=== PATIENT | female | born 1935 | race Caucasian/White ===

== ENCOUNTER 2020-01-18 13:00 | Inpatient (IN) | payer OTHER ==
--- NOTE | 2020-01-18 13:17 | PDOC ---
History of Present Illness - General Chief Complaint: Pain, Acute Stated Complaint: Pain Time Seen by Provider: 01/18/20 13:16 - History of Present Illness Initial Comments: 84 YOF h/o stage 1 ovarian cancer s/p open hysterectomy, HTN, and umbilical hernia presents with abdominal pain of 2 weeks duration. Pain is in a band like distribution of lower anterior abdomen including llq, rlq, and suprabupic region, 8/10 in intensity while ambulating and sitting upright, aching in quality, no radiation, not taking anything for it but lying in bed in improves pain. 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 Denies CP, SOB, Nausea, vomiting, diarrhea, fever or chills. Last bowel movement was this AM and she is still passing flatus. Constitutional: No Weight Change, No Fever, No Chills, No Night Sweats, No Fatigue, No Malaise ENT/Mouth: No Hearing Changes, No Ear Pain, No Nasal Congestion, No Sinus Pain, No Hoarseness, No sore throat, No Rhinorrhea, No Swallowing Difficulty Eyes: No Eye Pain, No Swelling, No Redness, No Foreign Body, No Discharge, No V ision Changes Cardiovascular: No Chest Pain, No SOB, No PND, No Dyspnea on Exertion, No Orthopnea, No Claudication, No Edema, No Palpitations Respiratory: No Cough, No Sputum, No Wheezing, No Smoke Exposure, No Dyspnea Gastrointestinal: No Nausea, No Vomiting, No Diarrhea, No Constipation, No He artburn, No Anorexia, No Dysphagia, No Hematochezia, No Melena, No Flatulence, No Jaundice Genitourinary: No Dysmenorrhea, No DUB, No Dyspareunia, No Dysuria, No Urinary Frequency, No Hematuria, No Urinary Incontinence, No Urgency, No Flank Pain, No Urinary Flow Changes, No Hesitancy Musculoskeletal: No Arthralgias, No Myalgias, No Joint Swelling, No Joint Stiffness, No Back Pain, No Neck Pain, No Injury History Skin: No Skin Lesions, No Pruritis, No Hair Changes, No Breast/Skin Changes, No Nipple Discharge Neuro: No Weakness, No Numbness, No Paresthesias, No Loss of Consciousness, No Syncope, No Dizziness, No Headache, No Coordination Changes, No Recent Falls Psych: No Anxiety/Panic, No Depression, No Insomnia, No Personality Changes, No Delusions, No Rumination, No SI/HI/AH/VH, No Social Issues, No Memory Changes, No Violence/Abuse Hx., No Eating Concerns Heme/Lymph: No Bruising, No Bleeding, No Transfusions History, No Lymphadenopathy Endocrine: No Polyuria, No Polydipsia, No Temperature Intolerance Past History - Medical History Allergies/Adverse Reactions: Allergies Allergy/AdvReac Type Severity Reaction Status Date / Time lactose AdvReac Verified 01/21/20 19:58 Home Medications: Ambulatory Orders Acetaminophen [Tylenol] 650 mg PO Q6H PRN 01/18/20 Amlodipine Besylate 2.5 mg PO DAILY 01/18/20 Calcium 250Mg/Vit-D 125 Units [Oscal 250 mg+D -] 1 combo PO DAILY 01/18/20 Cholecalciferol (Vitamin D3) [Vitamin D3 -] 1,000 unit PO DAILY 01/18/20 Levothyroxine Sodium [Levoxyl] 50 mcg PO DAILY 01/18/20 Metoprolol Succinate [Toprol Xl] 25 mg PO DAILY 01/18/20 Vit A/Vit C/Vit E/Zinc/Copper [Preservision Areds Softgel] 1 each PO BID 01/18/20 Vortioxetine Hydrobromide [Trintellix] 5 mg PO DAILY 01/18/20 COPD: No (sleep apnea) GI Disorders: Yes (hernia) Other medical history: unsteady gait - Psycho-Social/Smoking History Smoking History: Never smoked - Substance Abuse Hx (Audit-C & DAST Scrn) How often the patient has a drink containing alcohol: Never Score: In Men: 4 or > Positive; In Women: 3 or > Positive: 0 Screen Result (Pos requires Nsg. Audit-10AR): Negative In the last yr the pt used illegal drug/Rx for NonMed reason: No Score: Yes response is considered Positive: 0 Screen Result (Positive result requires Nsg. DAST-10): Negative *Physical Exam - Vital Signs Last Vital Signs Temp Pulse Resp BP Pulse Ox 98.0 F 79 18 134/74 100 01/18/20 13:12 01/18/20 13:12 01/18/20 13:12 01/18/20 13:12 01/18/20 13:12 - Physical Exam General Appearance: Yes: Appropriately Dressed, Apparent Distress HEENT: positive: NATALIIA, Normal ENT Inspection, Normal Voice, Symmetrical, TMs Normal, Pharynx Normal Neck: positive: Trachea midline, Normal Thyroid Respiratory/Chest: positive: Lungs Clear, Normal Breath Sounds, Respiratory Distress Cardiovascular: positive: Regular Rhythm, Regular Rate, S1, S2 Gastrointestinal/Abdominal: positive: Normal Bowel Sounds, Tender, Flat, Soft Musculoskeletal: positive: Normal Inspection, CVA Tenderness Extremity: positive: Normal Capillary Refill, Normal Inspection, Normal Range of Motion Integumentary: positive: Normal Color, Dry, Warm, Cyanotic Neurologic: positive: talent buyer II-XII NML intact, Fully Oriented, Alert, Normal Mood/Affect, Normal Response, Motor Strength 10/09 ED Treatment Course - LABORATORY CBC & Chemistry Diagram: 01/21/20 10:48 01/21/20 10:48 Medical Decision Making - Medical Decision Making 84 YOF h/o stage 1 ovarian cancer s/p open hysterectomy, HTN, and umbilical hernia presents with abdominal pain of 2 weeks duration. Pain is in a band like distribution of lower anterior abdomen including llq, rlq, and suprabupic region, 8/10 in intensity while ambulating and sitting upright, aching in quality, no radiation, not taking anything for it but lying in bed in improves pain. 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 Denies CP, SOB, Nausea, vomiting, diarrhea, fever or chills. Last bowel movement was this AM and she is still passing flatus. On arrival vitals were wnl. Physical exam revealing of TTP in lower abdomen bilaterally as well as in suprapubic region. ddx: diverticulitis, UTI, constipation, gastritis, pancreatitis, mesenteric ischemia plan: CT abdomen and pelvis w/ contrast, EKG, CXR, labs, UA tylenol for pain control. reassess: EKG and CXR, labs, UA wnl. CT revealed dilatation of the small bowel consistent with ileus, spoke with Dr. Landeros who recommended patient be made NPO admitted for management of ileus. Dispo: admit to medicine. 01/22/20 03:37 01/22/20 03:39 Discharge - Discharge Information Problems reviewed: Yes Clinical Impression/Diagnosis: Ileus - Follow up/Referral - Patient Discharge Instructions - Post Discharge Activity
[2020-01-18] MEDS ORDERED: ACETAMINOPHEN 1000 MG/100 ML VIAL (NON FORMULARY) IVPB ONE (14:30)
[2020-01-18] MEDS ORDERED: ACETAMINOPHEN INJECTION 100 ML IVPB ONE (14:33)
[2020-01-18 14:48] LABS: PH,URINE 7.5 (5.0-8.0); URINE APPEARANCE CLEAR; URINE BILIRUBIN NEGATIVE (NEGATIVE); URINE COLOR YELLOW; URINE GLUCOSE (UA) NEGATIVE (NEGATIVE); URINE KETONE NEGATIVE (NEGATIVE); URINE LEUK ESTERASE NEGATIVE (NEGATIVE); URINE NITRITE NEGATIVE (NEGATIVE); URINE PROTEIN NEGATIVE (NEGATIVE); URINE UROBILINOGEN 0.2 mg/dL (0.2-1.0)
[2020-01-18 15:15] LABS: BASO % 1.2 % (0-2.0); EOS % 1.5 % (0-4.5); HEMATOCRIT 32.8 % (32.4-45.2); HEMOGLOBIN 10.8 GM/dL (10.7-15.3); LYMPH % 29.1 % (8-40); MCH 30.9 pg (25.7-33.7); MCHC 32.9 g/dl (32.0-36.0); MEAN CELL VOLUME 93.7 fl (80-96); MEAN PLT VOLUME 8.1 fl (7.5-11.1); MONO % 9.7 % (3.8-10.2); NEUT % 58.5 % (42.8-82.8); PLATELET COUNT 388 K/MM3 (134-434); RBC 3.51 M/mm3 (3.60-5.2); RDW 13.6 % (11.6-15.6); WHITE BLOOD COUNT 9.4 K/mm3 (4.0-10.0)
[2020-01-18 15:41] LABS: ALBUMIN 3.6 g/dl (3.4-5.0); BILIRUBIN,TOTAL 0.2 mg/dL (0.2-1); BLOOD UREA NITROGEN 19.7 mg/dL (7-18); CREATININE 1.2 mg/dL (0.55-1.3); POTASSIUM 4.5 mmol/L (3.5-5.1); TOT PROT 7.2 g/dl (6.4-8.2)
--- NOTE | 2020-01-18 17:27 | PDOC ---
Documentation entered by Italia Gavin SCRIBE, acting as scribe for Paola Kaplan MD. Paola Kaplan MD: This documentation has been prepared by the scribe, Italia Gavin SCRIBE, under my direction and personally reviewed by me in its entirety. I confirm that the documentation accurately reflects all work, treatment, procedures, and medical decision making performed by me. Attending Attestation - Resident Resident Name: KhrisTaqueria jewell - ED Attending Attestation I have performed the following: I have examined & evaluated the patient, The case was reviewed & discussed with the resident, I agree w/resident's findings & plan, Exceptions are as noted - HPI HPI: 01/18/20 15:35 The patient is an 84-year-old female with a past medical history significant for sleep apnea and hernia who presents to the emergency department with few days of crampy, lower abdominal pain that worsened in the past week associated with decreased PO tolerance. Denies any changes in bowel habits. Denies urinary complaints. Denies fever or chills. - Physicial Exam PE: 01/18/20 14:50 General: well appearing HEENT: NCAT, MMM Abdomen: soft, +periumbilical reducible hernia, diffuse lower abd tenderness but maximal tenderness LLQ, no rebound, no guarding - Medical Decision Making 01/18/20 14:51 84 yo F with crampy lower abd pain, no change in bowel habits and no urinary complaints, found to have lower abdominal tenderness on exam, possible diverticulitis vs. UTI vs. pyelo vs. malignancy vs. constipation (although patient reports normal BMs) vs. msk pain as patient reports pain is worse with movement. Plan: -labs -cxr -urine -CT a/p -pain control as needed -reassess This clinical encounter is taking place during a federal and state health care emergency attributable to the novel [place] Virus pandemic. The [employer] of the Department of Health and Human Services has declared, pursuant to the Public Health Service Act 319F-3 (42 U.S.C. 247d-6d), that a covered persons activities related to medical countermeasures against COVID-19 will be immune from liability under Federal and State law. CT with possible ileus. Surgery consulted, awaiting recs. Patient signed out to incoming night team. Discharge - Discharge Information Problems reviewed: Yes Clinical Impression/Diagnosis: Ileus - Follow up/Referral - Patient Discharge Instructions - Post Discharge Activity
--- NOTE | 2020-01-18 21:32 | PN ---
Teaching Attending Note Name of Resident: Aubrey Llanos ATTENDING PHYSICIAN STATEMENT I saw and evaluated the patient. I reviewed the resident's note and discussed the case with the resident. I agree with the resident's findings and plan as documented. 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 Pain is in a band like distribution of lower anterior abdomen including LLQ, RLQ and suprabupic region. It is 8/10 in intensity while ambulating and sitting upright, aching in quality with no radiation. She is not taking anything for it but lying in bed in improves pain. 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 Last bowel movement was this AM and she is still passing flatus. Patient denies chest pain, shortness of breath, headache, palpitations, dizziness, fever, chills, nausea, vomiting, diarrhea, constipation, dysuria, frequency, urgency, melena, hematochezia or hematuria. Denies alcohol, tobacco or illicit drug use. No sick contacts or recent travels. Family history is unremarkable. OBJECTIVE: Alert Vital Signs Period Temp Pulse Resp BP Sys/Miguel Pulse Ox Last 24 Hr 98.0 F-98.8 F 64-79 14-18 134-167/63-79 96-100 HEENT: No Jaundice, eye redness or discharge, PERRLA, EOMI. Normocephalic, atraumatic. External ears are normal and hearing is grossly intact. No nasal discharge. Neck: Supple, nontender. No palpable adenopathy or thyromegaly. No JVD Chest: Good effort. Clear to auscultation and percussion. Heart: Regular. No S3, rub or murmur Abdomen: Not distended, soft, periumbilical reducible hernia, diffuse lower abdominal tenderness most marked in LLQ, no HSM. No rebound or guarding. Normal bowel sounds. Ext: Peripheral pulses intact. No leg edema. Skin: Warm and dry. No petechiae, rash or ecchymosis. Neuro: Alert. Oriented x3. CN 2-12 grossly intact. Sensation grossly intact in all four extremities and DTR are symmetric. Psych: Appropriate mood and affect. Good insight. Home Medications Medication Instructions Recorded Acetaminophen [Tylenol] 650 mg PO Q6H PRN 01/18/20 Amlodipine Besylate 2.5 mg PO DAILY 01/18/20 Calcium 250Mg/Vit-D 125 Units 1 combo PO DAILY 01/18/20 [Oscal 250 mg+D -] Cholecalciferol (Vitamin D3) 1,000 unit PO DAILY 01/18/20 [Vitamin D3 -] Levothyroxine Sodium [Levoxyl] 50 mcg PO DAILY 01/18/20 Metoprolol Succinate [Toprol Xl] 25 mg PO DAILY 01/18/20 Vit A/Vit C/Vit E/Zinc/Copper 1 each PO BID 01/18/20 [Preservision Areds Softgel] Vortioxetine Hydrobromide 5 mg PO DAILY 01/18/20 [Trintellix] Abnormal Lab Results 01/18/20 01/18/20 01/18/20 14:04 14:41 14:41 RBC 3.51 L BUN 19.7 H Ur Specific [place] 1.006 L Current Medications Generic Name Dose Route Start Last Admin Trade Name Freq PRN Reason Stop Dose Admin Acetaminophen 1,000 mg 01/19/20 05:26 Ofirmev Injection - IVPB 01/20/20 05:26 Q8H PRN PAIN LEVEL 4 - 6 Amlodipine Besylate 2.5 mg 01/19/20 10:00 Norvasc - PO DAILY [facility] Lactated Ringer's 1,000 mls @ 75 mls/hr 01/19/20 05:30 Lactated Ringers Solution IV ASDIR [facility] Levothyroxine Sodium 50 mcg 01/19/20 07:00 Synthroid - PO DAILY@0700 [facility] ASSESSMENT AND PLAN: 1. Small bowel ileus - CT scan of abdomen/pelvis with IV and oral contrast shows moderate size umblical hernia without evidence of incaceration; small bowel ileus and diverticulosis coli without evidence of diverticulitis. Will get PT/INR, keep her NPO, give IV LR, use Tylenol for pain control and consult Surgery. No acute abnormality on CXR. EKG shows NSR at 65/minute and QTc [address]-T wave changes. Initial troponin is negative. Viral testing for COVID-19 ordered and patient placed on airborne, droplet and contact isolation. Will continue comprehensive care for all of patients comorbid conditions including Synthroid for hypothyroidism. 2. Hypertension Will restart suitable outpatient antihypertensive drugs when clinically appropriate. Subsequently, will revise regimen to ensure [id number] excellent BP control. Patient counseled on the injurious effects of uncontrolled hypertension. Nonpharmacologic measures to control hypertension like weight loss, salt restriction and exercise stressed. Importance of adherence to treatment regimen and attainment of normotension emphasized. 3. DVT prophylaxis - SCD. 4. Advance directives - Full code
[2020-01-18] MEDS ORDERED: LACTATED RINGERS SOLUTION 1000 ML INFUS.BAG IV ONE (21:45)
--- NOTE | 2020-01-19 05:23 | HP ---
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 Pain is in a band like and extensive, involving the lower anterior abdomen including the LLQ, RLQ and suprabupic region. It is aggravated by ambulation and sitting upright with severity of 8/10. SH ehas never taken any pain relieve as it is relieved when lying suppine in bed. It is aching in nature with no radiation. She also mentions that she experienced a syncopal event of unknown etiology recently and had an implantable hydrogen cell tender placed about 3days ago. . Patient denies dizziness, fever, chills, nausea, vomiting, diarrhea, constipation, melena, hematochezia or hematuria, dysuria, frequency, urgency, ch est pain, shortness of breath, headache, palpitations,Family history is unremarkable. ER course was notable for: (1)LR 1000ml (2)Tylenol 1000ml (3)Urine culture Recent Travel:None PAST SURGICAL HISTORY:Hysterectomy Social History: Smoking: Alcohol: Drugs: Allergies No Known Allergies Allergy (Verified 01/18/20 13:15) HOME MEDICATIONS: Home Medications Medication Instructions Recorded Acetaminophen [Tylenol] 650 mg PO Q6H PRN 01/18/20 Amlodipine Besylate 2.5 mg PO DAILY 01/18/20 Calcium 250Mg/Vit-D 125 Units 1 combo PO DAILY 01/18/20 [Oscal 250 mg+D -] Cholecalciferol (Vitamin D3) 1,000 unit PO DAILY 01/18/20 [Vitamin D3 -] Levothyroxine Sodium [Levoxyl] 50 mcg PO DAILY 01/18/20 Metoprolol Succinate [Toprol Xl] 25 mg PO DAILY 01/18/20 Vit A/Vit C/Vit E/Zinc/Copper 1 each PO BID 01/18/20 [Preservision Areds Softgel] Vortioxetine Hydrobromide 5 mg PO DAILY 01/18/20 [Trintellix] REVIEW OF SYSTEMS Negative except as above Vital Signs - 24 hr 01/18/20 01/18/20 01/18/20 13:12 16:47 20:19 Temperature 98.0 F 98.8 F 98.7 F Pulse Rate 79 Pulse Rate [ 67 64 Right Radial] Respiratory 18 16 Rate Blood Pressure 134/74 Blood Pressure 167/74 155/79 [Left Arm] O2 Sat by Pulse 100 96 96 Oximetry (%) 01/18/20 01/19/20 01/19/20 22:00 02:03 03:19 Temperature 98.3 F Pulse Rate 59 L Pulse Rate [ 64 64 Right Radial] Respiratory 14 14 20 Rate Blood Pressure 126/76 Blood Pressure 166/63 178/88 H [Left Arm] O2 Sat by Pulse 97 97 100 Oximetry (%) PHYSICAL EXAMINATION GENERAL: Awake, alert, and fully oriented, in no acute distress. HEAD: Normal with no signs of trauma. EYES: sclera anicteric, conjunctiva clear. No lid lag. NECK: Normal range of motion, supple without lymphadenopathy, JVD, or masses. There is excessive fresh skin hanging over the anterior neck. 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 No wheezes, and no crackles. No obvious sign of respirtory distress HEART: Regular rate and rhythm, normal S1 and S2 without murmur, rub or gallop. ABDOMEN: Soft, left umblical hernia seen. There is severe tenderness over the LLQ, RLQ. No hepatomegaly or splenomegaly. MUSCULOSKELETAL: Normal range of motion at all joints. No bony deformities or tenderness. No CVA tenderness. UPPER EXTREMITIES: 2+ pulses, warm, well-perfused. No cyanosis. No clubbing. No peripheral edema. LOWER EXTREMITIES: 2+ pulses, warm, well-perfused. No calf tenderness. No periph eral edema. NEUROLOGICAL: Cranial nerves II-XII intact. Normal speech. PSYCHIATRIC: Cooperative. Good eye contact. Appropriate mood and affect. SKIN: Warm, dry, normal turgor, no rashes or lesions noted, normal capillary refill. Laboratory Results - last 24 hr 01/18/20 01/18/20 01/18/20 14:04 14:41 14:41 WBC 9.4 RBC 3.51 L Hgb 10.8 Hct 32.8 MCV 93.7 MCH 30.9 MCHC 32.9 RDW 13.6 Plt Count 388 MPV 8.1 Absolute Neuts (auto) 5.5 Neutrophils % 58.5 Lymphocytes % 29.1 Monocytes % 9.7 Eosinophils % 1.5 Basophils % 1.2 Nucleated RBC % 0 Sodium 137 Potassium 4.5 Chloride 102 Carbon Dioxide 27 Anion Gap 8 BUN 19.7 H Creatinine 1.2 Est GFR (CKD-EPI)AfAm 47.72 Est GFR (CKD-EPI)NonAf 41.18 Random Glucose 94 Calcium 10.0 Total Bilirubin 0.2 AST 21 ALT 23 Alkaline Phosphatase 117 Total Protein 7.2 Albumin 3.6 Lipase Urine Color Yellow Urine Appearance Clear Urine pH 7.5 Ur Specific [place] 1.006 L Urine Protein Negative Urine Glucose (UA) Negative Urine Ketones Negative Urine Blood Negative Urine Nitrite Negative Urine Bilirubin Negative Urine Urobilinogen 0.2 Ur Leukocyte Esterase Negative 01/18/20 14:41 WBC RBC Hgb Hct MCV MCH MCHC RDW Plt Count MPV Absolute Neuts (auto) Neutrophils % Lymphocytes % Monocytes % Eosinophils % Basophils % Nucleated RBC % Sodium Potassium Chloride Carbon Dioxide Anion Gap BUN Creatinine Est GFR (CKD-EPI)AfAm Est GFR (CKD-EPI)NonAf Random Glucose Calcium Total Bilirubin AST ALT Alkaline Phosphatase Total Protein Albumin Lipase 221 Urine Color Urine Appearance Urine pH Ur Specific [place] Urine Protein Urine Glucose (UA) Urine Ketones Urine Blood Urine Nitrite Urine Bilirubin Urine Urobilinogen Ur Leukocyte Esterase ASSESSMENT/PLAN: Patient is an 84 year old woman with a PMH of Stage 1 Ovarian cancer, hysterectomy, Syncope, Implantable hydrogen cell tender, HTN, Hypothyroidism, sleep apnea and Umbilical hernia now c/o of abdominal pain of 2 weeks duration. #SMALL BOWEL ILEUS: lower abdominal pain CT scan of abdomen/pelvis with IV and oral contrast revealed moderate size uncomplicated umblical, small bowel ileus and diverticulosis coli without evidence of diverticulitis. PT/INR, Tylenol for pain control Consult Surgery. EKG shows NSR at 65/minute and QTc [address]-T wave changes with - ve Initial troponin. No acute abnormality on CXR. COVID-[address] patient on airborne, droplet and contact isolation. Continuen Synthroid for hypothyroidism and treatment for other comorbid conditions #HTN: Educate patient on importance of medication adherence and it's effect on optimal BP management as well as non pharmacologic approach to BP: weight loss, reduced salt intake and exercise Revise and resume appropriate outpatient antihypertensive drugs when clinically appropriate to ensure optimal BP control at all time #FEN: IV LR Monitor and replete electrolytes prn NPO #DISPOSITION: DVT prophylaxis - SCD. F/u pending labs Advance directives - Full code Family Medical History Family History: Unremarkable Visit type - Medication Review Med list reviewed for High Risk Meds patients 65 and older: Yes - Emergency Visit Emergency Visit: Yes ED Registration Date: 01/18/20 Care time: The patient presented to the Emergency Department on the above date and was hospitalized for further evaluation of their emergent condition. - New Patient This patient is new to me today: Yes Date on this admission: 01/19/20 - Critical Care Critical Care patient: No ATTENDING PHYSICIAN STATEMENT I saw and evaluated the patient. I reviewed the resident's note and discussed the case with the resident. I agree with the resident's findings and plan as documented. SUBJECTIVE: OBJECTIVE: ASSESSMENT AND PLAN:
[2020-01-19] MEDS ORDERED: ACETAMINOPHEN 1000 MG/100 ML VIAL (NON FORMULARY) IVPB PRN (05:26)
[2020-01-19] MEDS: LACTATED RINGERS SOLUTION 1,000 ML IV SCH (06:07)
[2020-01-19] MEDS: LEVOTHYROXINE NA 50 MCG TABLET (FP) PO SCH (08:07)
--- NOTE | 2020-01-19 10:30 | CONSULT ---
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 Pt reports she has had a known hernia since her surgery 3 years ago. States she was instructed to observe it and not pursue surgery unless necessary. States she began having abdominal pain 2 weeks ago. Pain is reported as 10/10 located across the lower abdomen. Pain is worse with ambulation, is not affected by eating or BMS. Has been eating, tough reports anorexia. Last bm was yesterday and was normal. Denies flatus but states that is baseline for her. Denies cp/sob, n/v/d, constipation, melena, hematochezia or hematuria, dysuria, frequency, urgency. PMHx: as above PSHx: as above Home Medications Medication Instructions Recorded Acetaminophen [Tylenol] 650 mg PO Q6H PRN 01/18/20 Amlodipine Besylate 2.5 mg PO DAILY 01/18/20 Calcium 250Mg/Vit-D 125 Units 1 combo PO DAILY 01/18/20 [Oscal 250 mg+D -] Cholecalciferol (Vitamin D3) 1,000 unit PO DAILY 01/18/20 [Vitamin D3 -] Levothyroxine Sodium [Levoxyl] 50 mcg PO DAILY 01/18/20 Metoprolol Succinate [Toprol Xl] 25 mg PO DAILY 01/18/20 Vit A/Vit C/Vit E/Zinc/Copper 1 each PO BID 01/18/20 [Preservision Areds Softgel] Vortioxetine Hydrobromide 5 mg PO DAILY 01/18/20 [Trintellix] Allergies Allergy/AdvReac Type Severity Reaction Status Date / Time No Known Allergies Allergy Verified 01/18/20 13:15 REVIEW OF SYSTEMS: CONSTITUTIONAL: Absent: fever, chills CARDIOVASCULAR: Absent: chest pain RESPIRATORY: Absent: cough, shortness of breath GASTROINTESTINAL: (+) abdominal pain, (-)abdominal distension, (-)nausea, (-) vomiting, (-) diarrhea, (-)constipation PHYSICAL EXAM: GENERAL: Awake, alert, in no acute distress. HEAD: Normal with no signs of trauma. Chest: steristrips in place mid chest LUNGS: No accessory muscle use on RA ABDOMEN: Soft, ++ttp at umbilicus, + palpable hernia, reducible, abdomen not distended, normoactive bowel sounds Vital Signs Temperature 98.3 F 01/19/20 03:19 Pulse Rate 59 L 01/19/20 03:19 Respiratory Rate 20 01/19/20 03:19 Blood Pressure 126/76 01/19/20 03:19 O2 Sat by Pulse Oximetry (%) 100 01/19/20 03:19 Lab Results WBC 9.4 K/mm3 (4.0-10.0) 01/18/20 14:41 RBC 3.51 M/mm3 (3.60-5.2) L 01/18/20 14:41 Hgb 10.8 GM/dL (10.7-15.3) 01/18/20 14:41 Hct 32.8 % (32.4-45.2) 01/18/20 14:41 MCV 93.7 fl (80-96) 01/18/20 14:41 MCHC 32.9 g/dl (32.0-36.0) 01/18/20 14:41 RDW 13.6 % (11.6-15.6) 01/18/20 14:41 Plt Count 388 K/MM3 (134-434) 01/18/20 14:41 Sodium 137 mmol/L (136-145) 01/18/20 14:41 Potassium 4.5 mmol/L (3.5-5.1) 01/18/20 14:41 Chloride 102 mmol/L (98-107) 01/18/20 14:41 Carbon Dioxide 27 mmol/L (21-32) 01/18/20 14:41 Anion Gap 8 MMOL/L (8-16) 01/18/20 14:41 BUN 19.7 mg/dL (7-18) H 01/18/20 14:41 Creatinine 1.2 mg/dL (0.55-1.3) 01/18/20 14:41 Random Glucose 94 mg/dL (74-106) 01/18/20 14:41 Calcium 10.0 mg/dL (8.5-10.1) 01/18/20 14:41 CT scan (01/18/20): Moderate size umbilical hernia with herniating bowel loops likely small bowel and without gross evidence of incarceration. However there is as short segment of mild small bowel dilatation is seen in the left lower abdomen that does not appear to be communicating with the herniating bowel loops. Likely on the basis of ileus. 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 CT scan with larger umbilical hernia. Surgery consulted for further evaluation. Pt with reducible, tender umbilical hernia Pt s/p implantable loop recorder 3 days ago at [facility] -Plan for open umbilical hernia repair on Wednesday, 01/21 -Will need cardiac clearance prior, had recent echo at [facility] -clear liquids ordered -npo after midnight Wednesday, 01/20 SEEN and examined with attending Dr Landeros
[2020-01-19] MEDS: amLODIPine BESYLATE 5 MG TABLET (FP) PO SCH (10:39)
[2020-01-19 11:13] LABS: HEMOGLOBIN 11.3 GM/dL (10.7-15.3); MCH 30.6 pg (25.7-33.7); MCHC 32.4 g/dl (32.0-36.0); MEAN CELL VOLUME 94.5 fl (80-96); PLATELET COUNT 383 K/MM3 (134-434); RDW 13.5 % (11.6-15.6); WHITE BLOOD COUNT 7.6 K/mm3 (4.0-10.0)
[2020-01-19 11:19] LABS: INR 1.05 (0.83-1.09); PROTHROMBIN TIME (PATIENT) 12.4 SEC (9.7-13.0)
[2020-01-19 11:21] LABS: ACTIVATED PTT 30.6 SECONDS (25.2-36.5)
[2020-01-19 11:52] LABS: ALBUMIN 3.4 g/dl (3.4-5.0); BILIRUBIN,TOTAL 0.5 mg/dL (0.2-1); CALCIUM 9.6 mg/dL (8.5-10.1); MAGNESIUM 2.3 mg/dL (1.8-2.4); PHOSPHOROUS 3.6 mg/dL (2.5-4.9); POTASSIUM 4.2 mmol/L (3.5-5.1)
--- NOTE | 2020-01-19 14:19 | CON.CARD ---
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 Pain is in a band like distribution of lower anterior abdomen including LLQ, RLQ and suprabupic region. It is 8/10 in intensity while ambulating and sitting upright, aching in quality with no radiation. She is not taking anything for it but lying in bed in improves pain. She also mentions a recent syncopal event of unknown etiology for which she has an implantable associate consulting engineer. Last bowel movement was this AM and she is still passing flatus. Patient denies chest pain, sh ortness of breath, headache, palpitations, dizziness, fever, chills, nausea, vomiting, diarrhea, constipation, dysuria, frequency, urgency, melena, hematochezia or hematuria. Denies alcohol, tobacco or illicit drug use. No sick contacts or recent travels. Family history is unremarkable. - Smoking History Smoking history: Never smoked Home Medications - Allergies Allergies/Adverse Reactions: Allergies Allergy/AdvReac Type Severity Reaction Status Date / Time No Known Allergies Allergy Verified 01/18/20 13:15 - Home Medications Home Medications: Ambulatory Orders Acetaminophen [Tylenol] 650 mg PO Q6H PRN 01/18/20 Amlodipine Besylate 2.5 mg PO DAILY 01/18/20 Calcium 250Mg/Vit-D 125 Units [Oscal 250 mg+D -] 1 combo PO DAILY 01/18/20 Cholecalciferol (Vitamin D3) [Vitamin D3 -] 1,000 unit PO DAILY 01/18/20 Levothyroxine Sodium [Levoxyl] 50 mcg PO DAILY 01/18/20 Metoprolol Succinate [Toprol Xl] 25 mg PO DAILY 01/18/20 Vit A/Vit C/Vit E/Zinc/Copper [Preservision Areds Softgel] 1 each PO BID 01/18/20 Vortioxetine Hydrobromide [Trintellix] 5 mg PO DAILY 01/18/20 Review of Systems - Review of Systems Constitutional: reports: No Symptoms Eyes: reports: No Symptoms HENT: reports: No Symptoms Neck: reports: No Symptoms Cardiovascular: reports: No Symptoms Gastrointestinal: reports: No Symptoms Genitourinary: reports: No Symptoms Breasts: reports: No Symptoms Reported Musculoskeletal: reports: No Symptoms Integumentary: reports: No Symptoms Neurological: reports: No Symptoms Endocrine: reports: No Symptoms Hematology/Lymphatic: reports: No Symptoms Psychiatric: reports: No Symptoms Vital Signs: Vital Signs Temperature 98.3 F 01/19/20 10:00 Pulse Rate 70 01/19/20 10:00 Respiratory Rate 18 01/19/20 10:00 Blood Pressure 134/71 01/19/20 10:00 O2 Sat by Pulse Oximetry (%) 97 01/19/20 10:00 Constitutional: Yes: Well Nourished, No Distress, Calm Eyes: Yes: WNL, Conjunctiva Clear, EOM Intact HENT: Yes: WNL, Atraumatic, Normocephalic Neck: Yes: WNL, Supple, Trachea Midline Respiratory: Yes: WNL, Regular, CTA Bilaterally Gastrointestinal: Yes: WNL, Normal Bowel Sounds Renal/: Yes: WNL Cardiovascular: Yes: WNL, Regular Rate and Rhythm Musculoskeletal: Yes: WNL Extremities: Yes: WNL Integumentary: Yes: WNL Neurological: Yes: WNL, Alert, Oriented ...Motor Strength: WNL Psychiatric: Yes: WNL, Alert, Oriented - Other Data Labs, Other Data: CBC, BMP 01/19/20 10:46 01/19/20 10:46 INR, PTT INR 1.05 (0.83-1.09) 01/19/20 10:46 Imaging - Results Chest X-ray: Image Reviewed (no i/e) EKG: Image Reviewed (sr wnl) Other: Report Reviewed (ECHO nl LV size and systolic FX) Problem List - Problems (1) Ileus Code(s): K56.7 - ILEUS, UNSPECIFIED Assessment/Plan 84 year old woman with a PMH of Stage 1 Ovarian cancer (s/p open hysterectomy), Hypothyroidism, Syncope one week ago, Implanted loop recorder associate consulting engineer a week ago, HTN, Sleep apnea and Umbilical hernia presents with abdominal pain of [address] scan (01/18/20): Moderate size umbilical hernia with herniating bowel loops likely small bowel and without gross evidence of incarceration. However there is as short segment of mild small bowel dilatation is seen in the left lower abdomen that does not appear to be communicating with the herniating bowel loops. Likely on the basis of ileus. Patient is being evaluated for clearance for open umbilical hernia repair on Wednesday, 01/21 Patient has normal EKG and ECHO, no h/o ASHD, Angina, CT or CHF Patient is low risk for cardiac complications during hernia repair and its cleared for surgery. Cont DVT plx
--- NOTE | 2020-01-19 15:44 | EKG ---
Test Reason : Blood Pressure : / mmHG Vent. Rate : 065 BPM Atrial Rate : 065 BPM P-R Int : 164 ms QRS Dur : 078 ms QT Int : 416 ms P-R-T Axes : 046 046 059 degrees QTc Int : 432 ms NORMAL SINUS RHYTHM CANNOT RULE OUT ANTERIOR INFARCT , AGE UNDETERMINED ABNORMAL ECG NO PREVIOUS ECGS AVAILABLE Confirmed by MEGAN VAZQUEZ MD ([id number]) on 01/19/2020 3:44:15 PM Referred By: Confirmed By:MEGAN VAZQUEZ MD
--- NOTE | 2020-01-19 15:46 | EKG ---
Test Reason : Blood Pressure : / mmHG Vent. Rate : 068 BPM Atrial Rate : 068 BPM P-R Int : 182 ms QRS Dur : 086 ms QT Int : 410 ms P-R-T Axes : 064 064 072 degrees QTc Int : 435 ms NORMAL SINUS RHYTHM NORMAL ECG WHEN COMPARED WITH ECG OF 18-JAN-2020 16:29, NO SIGNIFICANT CHANGE WAS FOUND Confirmed by MEGAN VAZQUEZ MD ([id number]) on 01/19/2020 3:46:04 PM Referred By: Confirmed By:MEGAN VAZQUEZ MD
--- NOTE | 2020-01-19 16:37 | ECHO ---
Name: ONOFRE HOWARD SR Exam:Adult Echocardiogram Study Date: 01/19/2020 03:02 PM Age: 84 yrs Reason For Study: Evaluate EF, pre-op Height: 62 in Weight: 122 lb BSA: 1.5 m2 MMode/2D Measurements & Calculations IVSd: 0.84 cm Ao root diam: 2.9 cm LVIDd: 3.4 cm LA dimension: 2.5 cm LVIDs: 2.3 cm ACS: 1.7 cm LVPWd: 0.86 cm EDV(Teich): 48.8 ml LVOT diam: 1.9 cm ESV(Teich): 18.4 ml LAV (MOD-bp): 49.0 ml TAPSE: 2.0 cm RV S Barrera: 13.1 cm/sec Doppler Measurements & Calculations MV E max barrera: 67.1 cm/sec Ao V2 max: 105.9 cm/sec MV A max barrera: 89.8 cm/sec Ao max P.5 mmHg MV E/A: 0.75 Ao V2 mean: 75.6 cm/sec MV dec time: 0.25 sec Ao mean P.5 mmHg Ao V2 VTI: 22.4 cm CELSO(I,D): 1.9 cm2 AI P1/2t: 639.3 msec CELSO(V,D): 2.0 cm2 AI max barrera: 340.7 cm/sec LV V1 max P.3 mmHg AI max P.4 mmHg LV V1 mean P.1 mmHg AI dec slope: 156.1 cm/sec2 LV V1 max: 76.4 cm/sec LV V1 mean: 49.6 cm/sec LV V1 VTI: 15.0 cm SV(LVOT): 42.4 ml TR max barrera: 213.6 cm/sec TR max P.4 mmHg PA V2 max: 66.5 cm/sec PI end-d barrera: 116.7 cm/sec PA max P.8 mmHg PA acc slope: 518.7 cm/sec2 PA acc time: 0.11 sec Med Peak E' Barrera: 5.6 cm/sec PA pr(Accel): 31.5 mmHg Med E/e': 12.1 Lat Peak E' Barrera: 8.9 cm/sec Lat E/e': 7.6 Pulm Sys Barrera: 37.0 cm/sec Pulm Miguel Barrera: 29.8 cm/sec Pulm S/D: 1.2 Procedure A complete two-dimensional transthoracic echocardiogram was performed (2D, M-mode, Doppler and color flow Doppler). Left Ventricle The left ventricular size, thickness and function are normal. The left ventricular ejection fraction is normal. Ejection Fraction = 60-65%. The left ventricular wall motion is normal. Right Ventricle The right ventricle is normal in size and function. Atria Normal left and right atrial size and function. Mitral Valve There is no mitral regurgitation noted. Tricuspid Valve There is mild tricuspid regurgitation. Right ventricular systolic pressure is normal. Aortic Valve No hemodynamically significant valvular aortic stenosis. Trace aortic regurgitation. Pulmonic Valve Trace pulmonic valvular regurgitation. Great Vessels The aortic root is normal size. Pericardium/Pleura There is no pericardial effusion. Interpretation Summary The left ventricular size, thickness and function are normal The right ventricle is normal in size and function. There is mild tricuspid regurgitation. Trace aortic regurgitation. Trace pulmonic valvular regurgitation. MD Alfonzo Sebastian 01/19/2020 04:37 PM
--- NOTE | 2020-01-19 17:13 | PN ---
Progress Note, Physician Chief Complaint: 24HR Events admitted for small bowel ileus in the setting of ventral hernia. pt evaluated by surgery for repair, but will need cardiac clearance. History of Present Illness: 84 year old woman with a PMH of Stage 1 Ovarian cancer, hysterectomy, Syncope, Implantable ekg monitor, HTN, Hypothyroidism, sleep apnea and Umbilical hernia now c/o of abdominal pain of [address] scan of abdomen/pelvis with IV and oral contrast revealed moderate size uncomplicated umblical, small bowel ileus and diverticulosis coli without evidence of diverticulitis. - Current Medication List Current Medications: Active Medications Acetaminophen (Ofirmev Injection -) 1,000 mg IVPB Q8H PRN PRN Reason: PAIN LEVEL 4 - 6 Stop: 01/20/20 05:26 Amlodipine Besylate (Norvasc -) 2.5 mg PO DAILY [facility] Last Admin: 01/19/20 10:39 Dose: 2.5 mg Documented by: Lactated Ringer's (Lactated Ringers Solution) 1,000 mls @ 75 mls/hr IV ASDIR SC H Last Admin: 01/19/20 06:07 Dose: 75 mls/hr Documented by: Levothyroxine Sodium (Synthroid -) 50 mcg PO DAILY@0700 [facility] Last Admin: 01/19/20 08:07 Dose: Not Given Documented by: - Objective Vital Signs: Vital Signs Temperature 98.2 F 01/19/20 14:05 Pulse Rate 72 01/19/20 14:05 Respiratory Rate 16 01/19/20 14:05 Blood Pressure 148/72 01/19/20 14:05 O2 Sat by Pulse Oximetry (%) 97 01/19/20 10:00 Constitutional: Yes: No Distress, Calm, Thin Eyes: Yes: Conjunctiva Clear HENT: Yes: Atraumatic, Normocephalic Neck: Yes: Thyromegaly Cardiovascular: Yes: Regular Rate and Rhythm Respiratory: Yes: CTA Bilaterally Gastrointestinal: Yes: Soft, Abdomen, Obese, Hernia, Hypoactive Bowel Sounds ...Rectal Exam: Yes: Deferred Musculoskeletal: Yes: WNL Extremities: Yes: WNL Edema: No Peripheral Pulses WNL: Yes Peripheral Pulses: Left Radial: 2+, Right Radial: 2+ Integumentary: Yes: WNL Neurological: Yes: Alert, Oriented ...Motor Strength: WNL Psychiatric: Yes: Alert, Oriented Labs: CBC, BMP 01/19/20 10:46 01/19/20 10:46 INR, PTT INR 1.05 (0.83-1.09) 01/19/20 10:46 - ....Imaging EKG: Report Reviewed (EKG 01/19/20 NSR 68bpm) Other: Report Reviewed (ECHO 01/19/20 Impression: Normal LV size, function and thickness. RV is normal size and function Mild tricuspid regurg trace aortic regurg Trace pulm valvular regurg Signed by Dr. Alfonzo Sebastian) Problem List - Problems (1) Hypothyroidism Assessment/Plan: synthroid 50mcg daily Code(s): E03.9 - HYPOTHYROIDISM, UNSPECIFIED (2) Recurrent syncope Assessment/Plan: pt has loop recorder recently placed by outpt cardiology Medical release signed in order to obtain records from [facility]. Code(s): R55 - SYNCOPE AND COLLAPSE (3) Umbilical hernia Assessment/Plan: pt being followed by surgery cardiology consulted for clearance Code(s): K42.9 - UMBILICAL HERNIA WITHOUT OBSTRUCTION OR GANGRENE (4) Ileus Assessment/Plan: clear liquid diet APAP PRN pain gentle IV hydration. Code(s): K56.7 - ILEUS, UNSPECIFIED (5) HTN (hypertension) Assessment/Plan: norvasc 2.5mg daily, can titrate up if BP becomes uncontrolled Toprol XL currently on hold Code(s): I10 - ESSENTIAL (PRIMARY) HYPERTENSION (6) Prophylactic measure Assessment/Plan: SCDs fall precautions SC heparin Code(s): Z29.9 - ENCOUNTER FOR PROPHYLACTIC MEASURES, UNSPECIFIED (7) Depression Assessment/Plan: hold trintellix supportive management Code(s): F32.9 - MAJOR DEPRESSIVE DISORDER, SINGLE EPISODE, UNSPECIFIED Impression/Plan Impression/Plan: Dispo: requires inpt care Full code Visit type - Emergency Visit Emergency Visit: Yes ED Registration Date: 01/18/20 Care time: The patient presented to the Emergency Department on the above date and was hospitalized for further evaluation of their emergent condition. - New Patient This patient is new to me today: Yes Date on this admission: 01/19/20 - Critical Care Critical Care patient: No - Discharge Referral Referred to [facility] Med P.C[facility] No - Medication Review Med list reviewed for High Risk Meds patients 65 and older: Yes
[2020-01-19] MEDS: HEPARIN NA (PORCINE) 5,000 UNITS/ML 1ML VIAL SQ SCH (21:53)
[2020-01-20] MEDS: LACTATED RINGERS SOLUTION 1,000 ML IV SCH ×2 (06:30→10:53)
[2020-01-20] MEDS: LEVOTHYROXINE NA 50 MCG TABLET (FP) PO SCH (06:31)
--- NOTE | 2020-01-20 09:57 | PN ---
Progress Note (short form) - Note Progress Note: Attending Surgeon Seen in f/u; appears a and o x 3 h/e forgetful at times; tolerated clear liquid diet No flatus and/or BM VSS AF abdo-soft; hernia easily reducible; non tender; o/w negative. IMP: incisional hernia/ileus improving PLAN: Advance to full liquids and plan for OR 01/22/2020 for repair of incisional hernia., Omari Landeros MD FACS
[2020-01-20] MEDS: amLODIPine BESYLATE 5 MG TABLET (FP) PO SCH (10:53)
[2020-01-20] MEDS: HEPARIN NA (PORCINE) 5,000 UNITS/ML 1ML VIAL SQ SCH ×2 (10:57→21:56)
--- NOTE | 2020-01-20 17:24 | PN ---
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 scan of abdomen/pelvis with IV and oral contrast revealed moderate size uncomplicated umblical, small bowel ileus and diverticulosis coli without evidence of diverticulitis. - Current Medication List Current Medications: Active Medications Amlodipine Besylate (Norvasc -) 2.5 mg PO DAILY [facility] Last Admin: 01/20/20 10:53 Dose: 2.5 mg Documented by: Heparin Sodium (Porcine) (Heparin -) 5,000 unit SQ BID [facility] Last Admin: 01/20/20 10:57 Dose: 5,000 unit Documented by: Lactated Ringer's (Lactated Ringers Solution) 1,000 mls @ 75 mls/hr IV ASDIR [facility] Last Admin: 01/20/20 10:53 Dose: 75 mls/hr Documented by: Levothyroxine Sodium (Synthroid -) 50 mcg PO DAILY@0700 [facility] Last Admin: 01/20/20 06:31 Dose: 50 mcg Documented by: - Objective Vital Signs: Vital Signs Temperature 98.9 F 01/20/20 10:00 Pulse Rate 90 01/20/20 10:00 Respiratory Rate 20 01/20/20 10:00 Blood Pressure 160/70 01/20/20 10:00 O2 Sat by Pulse Oximetry (%) 96 01/20/20 09:00 Constitutional: Yes: Well Nourished, No Distress Eyes: Yes: WNL, Conjunctiva Clear, Ptosis HENT: Yes: WNL, Atraumatic, Normocephalic Neck: Yes: WNL, Supple Cardiovascular: Yes: WNL, Regular Rate and Rhythm Respiratory: Yes: WNL, Regular, CTA Bilaterally Gastrointestinal: Yes: WNL, Normal Bowel Sounds, Soft Extremities: Yes: WNL Edema: No Integumentary: Yes: WNL Wound/Incision: Yes: Clean/Dry, Well Approximated Neurological: Yes: WNL, Alert, Oriented ...Motor Strength: WNL Psychiatric: Yes: WNL, Alert, Oriented Labs: CBC, BMP 01/19/20 10:46 01/19/20 10:46 INR, PTT INR 1.05 (0.83-1.09) 01/19/20 10:46 Impression/Plan Impression/Plan: 84 year old woman with a PMH notable for Stage 1 Ovarian cancer, hysterectomy, Syncope, Implantable monitoring engineer, HTN, Hypothyroidism, sleep apnea and Umbilical hernia now c/o of abdominal pain of [address] scan of abdomen/pelvis with IV and oral contrast revealed moderate size uncomplicated umblical, small bowel ileus and diverticulosis coli without evidence of diverticulitis. ....Imaging EKG: Report Reviewed (EKG 01/19/20 NSR 68bpm) Other: Report Reviewed (ECHO 01/19/20 Impression: Normal LV size, function and thickness. RV is normal size and function Mild tricuspid regurg trace aortic regurg Trace pulm valvular regurg Signed by Dr. Alfonzo Sebastian) Problem List - Problems (1) Ileus Assessment/Plan: Diet advanced to full liquid diet, tolerating it well APAP PRN pain gentle IV hydration as needed Code(s): K56.7 - ILEUS, UNSPECIFIED (2) Recurrent syncope Assessment/Plan: Patient has loop recorder recently placed by outpatient cardiology Medical release signed in order to obtain records from [facility]. Code(s): R55 - SYNCOPE AND COLLAPSE (3) Umbilical hernia Assessment/Plan: Patient being followed by surgery cardiology consulted for clearance As per surgery incisional hernia/ileus improving PLAN: Advance to full liquids and plan for OR 01/22/2020 for repair of incisional hernia., Code(s): K42.9 - UMBILICAL HERNIA WITHOUT OBSTRUCTION OR GANGRENE (4) Hypothyroidism Assessment/Plan: Continue with synthroid 50mcg daily Code(s): E03.9 - HYPOTHYROIDISM, UNSPECIFIED (5) HTN (hypertension) Assessment/Plan: Norvasc 2.5mg daily, can titrate up if Blood pressure becomes uncontrolled Toprol XL currently on hold Code(s): I10 - ESSENTIAL (PRIMARY) HYPERTENSION (6) Prophylactic measure Assessment/Plan: SCDs Fall precautions SC heparin Code(s): Z29.9 - ENCOUNTER FOR PROPHYLACTIC MEASURES, UNSPECIFIED (7) Depression Assessment/Plan: hold trintellix supportive management Code(s): F32.9 - MAJOR DEPRESSIVE DISORDER, SINGLE EPISODE, UNSPECIFIED Dispo: Requires inpatient care Full code Visit type - Emergency Visit Emergency Visit: Yes ED Registration Date: 01/18/20 Care time: The patient presented to the Emergency Department on the above date and was hospitalized for further evaluation of their emergent condition. - New Patient This patient is new to me today: Yes Date on this admission: 01/20/20 - Critical Care Critical Care patient: No - Discharge Referral Referred to [facility] Med P.C.: No - Medication Review Med list reviewed for High Risk Meds patients 65 and older: No
[2020-01-21] MEDS: LACTATED RINGERS SOLUTION 1,000 ML IV SCH (05:59)
[2020-01-21] MEDS: LEVOTHYROXINE NA 50 MCG TABLET (FP) PO SCH (06:00)
[2020-01-21] MEDS ORDERED: amLODIPine BESYLATE 2.5 MG TABLET (FP) PO SCH (07:43)
--- NOTE | 2020-01-21 09:27 | PN ---
Physical Exam: SUBJECTIVE: Patient seen and examined 01/21/20: Feels better today, denies any abdominal pain, madonna po, no nausea or vomiting Denies any cp or sob OBJECTIVE: Vital Signs Period Temp Pulse Resp BP Sys/Miguel Pulse Ox Last 24 Hr 97.7 F-98.9 F 75-90 20-20 136-160/70-83 94-95 GENERAL: The patient is awake, alert, and fully oriented, in no acute distress. HEAD: Normal with no signs of trauma. EYES: extraocular movements intact, sclera anicteric, conjunctiva clear. No ptosis. ENT: Ears normal, nares patent, oropharynx clear without exudates, moist mucous membranes. NECK: Trachea midline, full range of motion, supple. LUNGS: Breath sounds equal, clear to auscultation bilaterally, no wheezes, no accessory muscle use. Crackles at the bases HEART: Regular rate and rhythm, S1, S2 without murmur, rub or gallop. ABDOMEN: Soft, nontender, nondistended, normoactive bowel sounds, no guarding, no rebound, no hepatosplenomegaly, no masses. pos umbilical hernia, reducible EXTREMITIES: 2+ pulses, warm, well-perfused, no edema. NEUROLOGICAL: Cranial nerves II through XII grossly intact. Normal speech, gait not observed. PSYCH: Normal mood, normal affect. SKIN: Warm, dry, normal turgor, no rashes or lesions noted Active Medications Generic Name Dose Route Start Last Admin Trade Name Freq PRN Reason Stop Dose Admin Amlodipine Besylate 2.5 mg 01/21/20 10:00 Norvasc - PO DAILY [facility] Heparin Sodium (Porcine) 5,000 unit 01/19/20 22:00 01/20/20 21:56 Heparin - SQ 5,000 unit BID ALIDA Administration Lactated Ringer's 1,000 mls @ 75 mls/hr 01/19/20 05:30 01/21/20 05:59 Lactated Ringers Solution IV Not Given ASDIR [facility] Levothyroxine Sodium 50 mcg 01/19/20 07:00 01/21/20 06:00 Synthroid - PO 50 mcg DAILY@0700 ALIDA Administration ASSESSMENT/PLAN: 84 year old woman with a PMH notable for Stage 1 Ovarian cancer, hysterectomy, Syncope, 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 scan of abdomen/pelvis with IV and oral contrast revealed moderate size uncomplicated umblical, small bowel ileus and diverticulosis coli without evidence of diverticulitis. Problem List - Problems (1) Ileus Assessment/Plan: Diet advanced to full liquid diet, tolerating it well; Resolved APAP PRN pain Code(s): K56.7 - ILEUS, UNSPECIFIED (2) Recurrent syncope Assessment/Plan: Patient has loop recorder recently placed by outpatient cardiology Medical [facility] signed [facility] Code(s): R55 - SYNCOPE AND COLLAPSE (3) Umbilical hernia Assessment/Plan: Patient being followed by surgery cardiology consulted for clearance As per surgery incisional hernia/ileus improving PLAN: Advance to full liquids and plan for OR 01/22/2020 for repair of incisional hernia., H/H, coags, electrolytes stable type and screen ordered for OR tomorrow Keep NPO post mn tonight No medical contraindications to proposed surgery Recommend incentive jennifer post op Code(s): K42.9 - UMBILICAL HERNIA WITHOUT OBSTRUCTION OR GANGRENE (4) Hypothyroidism Assessment/Plan: Continue with synthroid 50mcg daily Code(s): E03.9 - HYPOTHYROIDISM, UNSPECIFIED (5) HTN (hypertension) Assessment/Plan: Norvasc 2.5mg daily, can titrate up if Blood pressure becomes uncontrolled Toprol XL currently on hold --? unclear why held, will restart bb graham in perioperative setting, hr stable BP well controlled Code(s): I10 - ESSENTIAL (PRIMARY) HYPERTENSION (6) Prophylactic measure Assessment/Plan: SCDs Fall precautions SC heparin Code(s): Z29.9 - ENCOUNTER FOR PROPHYLACTIC MEASURES, UNSPECIFIED (7) Depression Assessment/Plan: hold trintellix supportive management Code(s): F32.9 - MAJOR DEPRESSIVE DISORDER, SINGLE EPISODE, UNSPECIFIED Visit type - Emergency Visit Emergency Visit: Yes ED Registration Date: 01/18/20 Care time: The patient presented to the Emergency Department on the above date and was hospitalized for further evaluation of their emergent condition. - New Patient This patient is new to me today: Yes Date on this admission: 01/21/20 - Critical Care Critical Care patient: No - Discharge Referral Referred to [facility] Med P.C.: No - Medication Review Med list reviewed for High Risk Meds patients 65 and older: Yes
[2020-01-21] MEDS: HEPARIN NA (PORCINE) 5,000 UNITS/ML 1ML VIAL SQ SCH ×2 (09:29→22:49)
[2020-01-21] MEDS: amLODIPine BESYLATE 2.5 MG TABLET (FP) PO SCH (09:29)
[2020-01-21 10:58] LABS: BASO % 1.7 % (0-2.0); EOS % 0.9 % (0-4.5); HEMATOCRIT 31.3 % (32.4-45.2); HEMOGLOBIN 10.4 GM/dL (10.7-15.3); LYMPH % 25.8 % (8-40); MCHC 33.3 g/dl (32.0-36.0); MEAN CELL VOLUME 93.2 fl (80-96); NEUT % 59.6 % (42.8-82.8); PLATELET COUNT 329 K/MM3 (134-434); RBC 3.36 M/mm3 (3.60-5.2); RDW 13.8 % (11.6-15.6); WHITE BLOOD COUNT 7.8 K/mm3 (4.0-10.0)
[2020-01-21 11:44] LABS: BLOOD UREA NITROGEN 9.4 mg/dL (7-18)
[2020-01-22] MEDS: LEVOTHYROXINE NA 50 MCG TABLET (FP) PO SCH ×2 (06:05→06:06)
[2020-01-22] MEDS: LACTATED RINGERS SOLUTION 1,000 ML IV SCH ×2 (07:56→17:10)
[2020-01-22] MEDS ORDERED: metoPROLOL SUCCINATE 25 MG TAB.SR.24H (FP) PO SCH (10:00)
[2020-01-22] MEDS: HEPARIN NA (PORCINE) 5,000 UNITS/ML 1ML VIAL SQ SCH ×2 (10:55→21:02)
[2020-01-22] MEDS: amLODIPine BESYLATE 2.5 MG TABLET (FP) PO SCH (10:58)
--- NOTE | 2020-01-22 11:48 | PN ---
Progress Note (short form) - Note Progress Note: Attending Surgeon For repair incisional hernia w/possible mesh today; plan d/w and agreed to by the patient; she has signed informed consent; I have discussed this w/her HCP as well; I believe the hernia to have been the reason she was admitted for her abdominal pain; the goal here is to repair the hernia so that she does not present the next time w/it being incarcerated and/or strangulated. Omari Landeros MD FACS
[2020-01-22] MEDS ORDERED: DEXAMETHASONE SOD PHOSPHATE/PF 10 MG/ML SDV ONE (12:06)
[2020-01-22] MEDS ORDERED: PROPOFOL 20 ML ONE ×2 (12:06)
[2020-01-22] MEDS ORDERED: MIDAZOLAM HCL 2 MG/2 ML SINGLE DOSE VIAL ONE ×2 (12:06→12:14)
[2020-01-22] MEDS ORDERED: ceFAZolin SODIUM 1 GM VIAL IVPB ONE (12:37)
[2020-01-22] MEDS ORDERED: ONDANSETRON 4 MG/2 ML VIAL IVPUSH PRN ×2 (13:30→16:38)
[2020-01-22] MEDS ORDERED: ACETAMINOPHEN 1000 MG/100 ML VIAL (NON FORMULARY) IVPB PRN (13:30)
--- NOTE | 2020-01-22 13:48 | OP ---
Operative Note - Note: Operative Date: 01/22/20 Pre-Operative Diagnosis: incisional hernia Operation: repair incisional hernia w/Nathan IP Findings: defect at the umbilicus ~ 4.0 cm. in greatest dimension. Implants: Sepramesh IP Surgeon: Omari Landeros Scanning Supervisor: Octavio Jimenes Anesthesiologist/SEM MANAGER: Mili Jackman Anesthesia: General (with block) Specimens Removed: none Estimated Blood Loss (mls): 10
[2020-01-22] MEDS ORDERED: ACETAMINOPHEN INJECTION 100 ML IVPB ONE (14:12)
[2020-01-22] MEDS: ACETAMINOPHEN 1000 MG/100 ML VIAL (NON FORMULARY) IVPB PRN (14:15)
--- NOTE | 2020-01-22 14:59 | SURG ---
Surgery Electric Locomotive Crane Operator Note Electric Locomotive Crane Operator: Octavio Jimenes PA-C Date of Service: 01/22/20 Diagnosis: incisional hernia Procedure: repair incisional hernia w/ senait HERMAN I was present for the entirety of the operative procedure. For further detail, please refer to operative report. Visit type - Case Type Case Type: ED Admission - Emergency Emergency Visit: Yes ED Registration Date: 01/18/20 Care time: The patient presented to the Emergency Department on the above date and was hospitalized for further evaluation of their emergent condition. - New patient This patient is new to me today: Yes Date on this admission: 01/22/20
[2020-01-22] MEDS ORDERED: oxyCODONE HCL 5 MG TABLET PO PRN (16:38)
--- NOTE | 2020-01-22 16:54 | PN ---
Progress Note, Physician History of Present Illness: 84 year old woman with a PMH of Stage 1 Ovarian cancer (s/p open hysterectomy), Hypothyroidism, Syncope, Implantable chief arson division, HTN, Sleep apnea and Umbilical hernia presents with abdominal pain of 2 weeks duration. Pain is in a band like distribution of lower anterior abdomen including LLQ, RLQ and suprabupic region. It is 8/10 in intensity while ambulating and sitting upright, aching in quality with no radiation. She is not taking anything for it but lying in bed in improves pain. She also mentions a recent syncopal event of unknown etiology for which she has an implantable chief arson division. Last bowel movement was this AM and she is still passing flatus. Patient denies chest pain, shortness of breath, headache, palpitations, dizziness, fever, chills, nausea, vomiting, diarrhea, constipation, dysuria, frequency, urgency, melena, hematochezia or hematuria. Denies alcohol, tobacco or illicit drug use. No sick contacts or recent travels. Family history is unremarkable. - Current Medication List Current Medications: Active Medications Acetaminophen (Ofirmev Injection -) 1,000 mg IVPB Q6H PRN PRN Reason: PAIN Stop: 01/23/20 13:30 Amlodipine Besylate (Norvasc -) 2.5 mg PO DAILY [facility] Fentanyl (Sublimaze Injection -) 25 mcg IVPUSH Q5M PRN PRN Reason: PAIN-PACU ORDER X 4 DOSES ONLY Heparin Sodium (Porcine) (Heparin -) 5,000 unit SQ BID [facility] Lactated Ringer's (Lactated Ringers Solution) 1,000 mls @ 75 mls/hr IV ASDIR [facility] Levothyroxine Sodium (Synthroid -) 50 mcg PO DAILY@0700 [facility] Metoprolol Succinate (Toprol Xl -) 25 mg PO DAILY [facility] Ondansetron HCl (Zofran Injection) 4 mg IVPUSH Q6H PRN PRN Reason: NAUSEA AND/OR VOMITING Oxycodone HCl (Roxicodone -) 5 mg PO Q6H PRN PRN Reason: PAIN LEVEL 6-10 - Objective Vital Signs: Vital Signs Temperature 100 F H 01/22/20 15:45 Pulse Rate 17 L 01/22/20 15:45 Respiratory Rate 16 01/22/20 15:30 Blood Pressure 140/506 H 01/22/20 15:45 O2 Sat by Pulse Oximetry (%) 100 01/22/20 15:30 Eyes: Yes: WNL, Conjunctiva Clear, EOM Intact HENT: Yes: WNL, Atraumatic, Normocephalic Neck: Yes: WNL, Supple, Trachea Midline Cardiovascular: Yes: WNL, Regular Rate and Rhythm Respiratory: Yes: WNL, Regular, CTA Bilaterally Genitourinary: Yes: WNL Musculoskeletal: Yes: WNL Extremities: Yes: WNL Edema: No Integumentary: Yes: WNL Neurological: Yes: WNL, Alert, Oriented ...Motor Strength: WNL Psychiatric: Yes: WNL Labs: CBC, BMP 01/21/20 10:48 01/21/20 10:48 INR, PTT INR 1.05 (0.83-1.09) 01/19/20 10:46 Problem List - Problems (1) Ileus Code(s): K56.7 - ILEUS, UNSPECIFIED Assessment/Plan 84 year old woman with a PMH of Stage 1 Ovarian cancer (s/p open hysterectomy), Hypothyroidism, Syncope one week ago, Implanted loop recorder chief arson division a week ago, HTN, Sleep apnea and Umbilical hernia presents with abdominal pain of [address] scan (01/18/20): Moderate size umbilical hernia with herniating bowel loops likely small bowel and without gross evidence of incarceration. However there is as short segment of mild small bowel dilatation is seen in the left lower abdomen that does not appear to be communicating with the herniating bowel loops. Likely on the basis of ileus. Patient is being evaluated for clearance for open umbilical hernia repair on Wednesday, 01/21 Patient has normal EKG and ECHO, no h/o ASHD, Angina, IN or CHF Patient is low risk for cardiac complications during hernia repair and its cleared for surgery. Cont DVT plx
--- NOTE | 2020-01-22 19:07 | PN ---
Progress Note, Physician Chief Complaint: 24HR events Pt scheduled for OR today - for open umbilical hernia repair with Dr. 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 scan of abdomen/pelvis with IV and oral contrast revealed moderate size uncomplicated umblical, small bowel ileus and diverticulosis coli without ev idence of diverticulitis. - Current Medication List Current Medications: Active Medications Acetaminophen (Ofirmev Injection -) 1,000 mg IVPB Q6H PRN PRN Reason: PAIN Stop: 01/23/20 13:30 Last Admin: 01/22/20 14:15 Dose: 1,000 mg Documented by: Amlodipine Besylate (Norvasc -) 2.5 mg PO DAILY [facility] Heparin Sodium (Porcine) (Heparin -) 5,000 unit SQ BID [facility] Lactated Ringer's (Lactated Ringers Solution) 1,000 mls @ 75 mls/hr IV ASDIR ALIDA Last Admin: 01/22/20 17:10 Dose: 0 mls Documented by: Levothyroxine Sodium (Synthroid -) 50 mcg PO DAILY@0700 [facility] Metoprolol Succinate (Toprol Xl -) 25 mg PO DAILY [facility] Ondansetron HCl (Zofran Injection) 4 mg IVPUSH Q6H PRN PRN Reason: NAUSEA AND/OR VOMITING Oxycodone HCl (Roxicodone -) 5 mg PO Q6H PRN PRN Reason: PAIN LEVEL 6-10 - Objective Vital Signs: Vital Signs Temperature 97.6 F 01/22/20 18:09 Pulse Rate 76 01/22/20 18:09 Respiratory Rate 18 01/22/20 18:09 Blood Pressure 179/82 H 01/22/20 18:09 O2 Sat by Pulse Oximetry (%) 96 01/22/20 18:09 Constitutional: Yes: No Distress, Calm Eyes: Yes: Conjunctiva Clear HENT: Yes: Atraumatic Neck: Yes: Supple, Thyromegaly Respiratory: Yes: Regular, CTA Bilaterally Gastrointestinal: Yes: Abdomen, Obese, Hypoactive Bowel Sounds, Other (LLQ tenderness) Musculoskeletal: Yes: WNL Extremities: Yes: WNL Edema: No Peripheral Pulses WNL: Yes Peripheral Pulses: Left Radial: 2+, Right Radial: 2+ Integumentary: Yes: WNL Neurological: Yes: Alert, Oriented ...Motor Strength: WNL Psychiatric: Yes: Alert, Oriented Labs: CBC, BMP 01/21/20 10:48 01/21/20 10:48 INR, PTT INR 1.05 (0.83-1.09) 01/19/20 10:46 Problem List - Problems (1) Hypothyroidism Assessment/Plan: synthroid 50mcg daily Code(s): E03.9 - HYPOTHYROIDISM, UNSPECIFIED (2) Recurrent syncope Assessment/Plan: pt has loop recorder recently placed by outpt cardiology Code(s): R55 - SYNCOPE AND COLLAPSE (3) Umbilical hernia Assessment/Plan: pt being followed by surgery - now s/p open repair with Dr. Landeros Operative Date: 01/22/20 Pre-Operative Diagnosis: incisional hernia Operation: repair incisional hernia w/Sepramesh IP Findings: defect at the umbilicus ~ 4.0 cm. in greatest dimension. Implants: Sepramesh IP Surgeon: Omari Landeros Impact Retail Service Merchandiser: Octavio Jimenes Anesthesiologist/WATER RESOURCE PROJECT MANAGER: Mili Jackman Anesthesia: General (with block) Specimens Removed: none Estimated Blood Loss (mls): 10 Code(s): K42.9 - UMBILICAL HERNIA WITHOUT OBSTRUCTION OR GANGRENE (4) HTN (hypertension) Assessment/Plan: norvasc 2.5mg daily, can titrate up if BP becomes uncontrolled Toprol XL currently on hold Code(s): I10 - ESSENTIAL (PRIMARY) HYPERTENSION (5) Prophylactic measure Assessment/Plan: SCDs fall precautions SC heparin BID Code(s): Z29.9 - ENCOUNTER FOR PROPHYLACTIC MEASURES, UNSPECIFIED (6) Depression Assessment/Plan: hold trintellix supportive management Code(s): F32.9 - MAJOR DEPRESSIVE DISORDER, SINGLE EPISODE, UNSPECIFIED Visit type - Emergency Visit Emergency Visit: Yes ED Registration Date: 01/18/20 Care time: The patient presented to the Emergency Department on the above date and was hospitalized for further evaluation of their emergent condition. - New Patient This patient is new to me today: No - Critical Care Critical Care patient: No - Discharge Referral Referred to [facility] Med P.C.: No - Medication Review Med list reviewed for High Risk Meds patients 65 and older: Yes
[2020-01-23] MEDS: ACETAMINOPHEN 1000 MG/100 ML VIAL (NON FORMULARY) IVPB PRN (06:24)
[2020-01-23] MEDS: LEVOTHYROXINE NA 50 MCG TABLET (FP) PO SCH (06:24)
[2020-01-23] MEDS ORDERED: amLODIPine BESYLATE 2.5 MG TABLET (FP) PO SCH ×2 (10:00→16:22)
[2020-01-23] MEDS: metoPROLOL SUCCINATE 25 MG TAB.SR.24H (FP) PO SCH (10:25)
[2020-01-23] MEDS: HEPARIN NA (PORCINE) 5,000 UNITS/ML 1ML VIAL SQ SCH ×2 (10:26→21:25)
--- NOTE | 2020-01-23 11:04 | PN ---
Progress Note (short form) - Note Progress Note: Surgery POD #1 repair incisional hernia w/Nathan IP Patient seen and examined at bedside c/o RLQ and LLQ band like pain mostly controlled with oral medications. She has been OOB voiding and tolerating some sips of clears. She denies any CP, N/V, fever, chills or SOB. Vital Signs Temp 97.8 F 01/23/20 06:05 Pulse 57 L 01/23/20 06:05 Resp 20 01/23/20 06:05 BP 133/80 01/23/20 06:05 Pulse Ox 95 01/23/20 06:05 Intake & Output 01/22/20 01/22/20 01/23/20 11:59 23:59 11:59 Intake Total 375 1600 450 Output Total 10 Balance 375 1590 450 Intake: IV 375 1600 450 Lactated Ringers Solution 375 1,000 ml @ 75 mls/hr IV ASDIR ALIDA Rx#:[id number] Lactated Ringers Solution 300 450 1,000 ml @ 75 mls/hr IV ASDIR ALIDA Rx#:[id number] IVPB 0 0 TPN/PPN 0 Output: Estimated Blood Loss 10 Other: Voiding Method Toilet Toilet Toilet # Unmeasured Voids Void 2 2 1 Bowel Movement Yes No No CBC, BMP 01/21/20 10:48 01/21/20 10:48 PE: A&Ox3, NAD Unlabored resp on RA ABD: soft, ND with diffuse TTP in b/l lower quadrants. incision c/d/i with steri strips in place and surrounding tissue intact with no tracking erythema, or evidence of collection or active d/c. B/L LE compartments soft, supple and non-tender with +DP pulses. Problem List - Problems (1) Incisional hernia Assessment/Plan: POD #1 incisional hernia repair doing well 1) pain medication reviewed and changed 2) continue clear diet today 3) Encourage IS-reviewed with patient this morning 4) OOB with assist and up to chair for meals Evaluation and plan discussed with Dr Landeros Code(s): K43.2 - INCISIONAL HERNIA WITHOUT OBSTRUCTION OR GANGRENE
--- NOTE | 2020-01-23 16:16 | PN ---
Physical Exam: SUBJECTIVE: Patient seen and examined. verbalized abdominal pain at surgical site relived with IV tylenol. 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 scan of abdomen/pelvis with IV and oral contrast revealed moderate size uncomplicated umblical, small bowel ileus and diverticulosis coli without evidence of diverticulitis. Patient is s/p open umbilical hernia repair on 01/22/2020. Vital Signs Period Temp Pulse Resp BP Sys/Miguel Pulse Ox Last 24 Hr 97.6 F-98.6 F 57-76 12-20 133-179/48-99 95-100 GENERAL: The patient is awake, alert, and fully oriented, in no acute distress. episodes of forgetfullness. HEAD: Normal with no signs of trauma. EYES: PERRL, extraocular movements intact, sclera anicteric, conjunctiva clear. No ptosis. ENT: Ears normal, nares patent, oropharynx clear without exudates NECK: Trachea midline, full range of motion, supple. LUNGS: Breath sounds equal, clear to auscultation bilaterally, no wheezes HEART: Regular rate and rhythm ABDOMEN: soft, non distended, surgical dress c/d/i EXTREMITIES: no edema. NEUROLOGICAL: Normal speech, gait not observed. PSYCH: Normal mood, normal affect. SKIN: Warm, dry, normal turgor, no rashes or lesions noted Active Medications Generic Name Dose Route Start Last Admin Trade Name Grahamq PRN Reason Stop Dose Admin Amlodipine Besylate 2.5 mg 01/23/20 10:00 01/23/20 10:25 Norvasc - PO 2.5 mg DAILY [facility] Administration Heparin Sodium (Porcine) 5,000 unit 01/22/20 22:00 01/23/20 10:26 Heparin - SQ 5,000 unit BID ALIDA Administration Lactated Ringer's 1,000 mls @ 75 mls/hr 01/22/20 16:38 01/22/20 17:10 Lactated Ringers Solution IV 0 mls ASDIR ALIDA Administration Levothyroxine Sodium 50 mcg 01/23/20 07:00 01/23/20 06:24 Synthroid - PO 50 mcg DAILY@0700 [facility] Administration Metoprolol Succinate 25 mg 01/23/20 10:00 01/23/20 10:25 Toprol Xl - PO 25 mg DAILY [facility] Administration Ondansetron HCl 4 mg 01/22/20 16:38 Zofran Injection IVPUSH Q6H PRN NAUSEA AND/OR VOMITING Oxycodone HCl 5 mg 01/23/20 07:53 Roxicodone - PO Q4H PRN PAIN LEVEL 6-10 ASSESSMENT/PLAN: Problem List - Problems (1) Status post hernia repair Assessment/Plan: on 01/22/2020, underwent open repair with Dr. Landeros dressing c/d/i advance diet per surgery incentive spirometer pain management Code(s): Z98.890 - OTHER SPECIFIED POSTPROCEDURAL STATES; Z87.19 - PERSONAL HISTORY OF OTHER DISEASES OF THE DIGESTIVE SYSTEM (2) HTN (hypertension) Assessment/Plan: slightly elevated on toprol and amlodopine increased amlodopine today Code(s): I10 - ESSENTIAL (PRIMARY) HYPERTENSION (3) Depression Assessment/Plan: hold trintellix supportive management Code(s): F32.9 - MAJOR DEPRESSIVE DISORDER, SINGLE EPISODE, UNSPECIFIED (4) DVT prophylaxis Assessment/Plan: SCDs Code(s): Z29.9 - ENCOUNTER FOR PROPHYLACTIC MEASURES, UNSPECIFIED (5) Prophylactic measure Assessment/Plan: SCDs fall precautions SC heparin BID Code(s): Z29.9 - ENCOUNTER FOR PROPHYLACTIC MEASURES, UNSPECIFIED Visit type - Emergency Visit Emergency Visit: Yes ED Registration Date: 01/18/20 Care time: The patient presented to the Emergency Department on the above date and was hospitalized for further evaluation of their emergent condition. - New Patient This patient is new to me today: Yes Date on this admission: 01/23/20 - Critical Care Critical Care patient: No - Discharge Referral Referred to [facility] Med P.C.: No - Medication Review Med list reviewed for High Risk Meds patients 65 and older: Yes
[2020-01-23 16:46] LABS: BASO % 0.4 % (0-2.0); HEMATOCRIT 31.1 % (32.4-45.2); HEMOGLOBIN 10.2 GM/dL (10.7-15.3); MEAN PLT VOLUME 9.7 fl (7.5-11.1); MONO % 11.4 % (3.8-10.2); NEUT % 72.2 % (42.8-82.8); PLATELET COUNT 295 K/MM3 (134-434); RDW 13.6 % (11.6-15.6); WHITE BLOOD COUNT 12.7 K/mm3 (4.0-10.0)
[2020-01-23 17:09] LABS: BILIRUBIN,TOTAL 0.3 mg/dL (0.2-1); BLOOD UREA NITROGEN 10.7 mg/dL (7-18); CALCIUM 8.9 mg/dL (8.5-10.1); CREATININE 1.1 mg/dL (0.55-1.3); MAGNESIUM 1.9 mg/dL (1.8-2.4); POTASSIUM 3.9 mmol/L (3.5-5.1); TOT PROT 6.4 g/dl (6.4-8.2)
--- NOTE | 2020-01-23 17:13 | PN ---
Progress Note, Physician Chief Complaint: Pt alert; no chest pain or dyspnea; no dizziness. 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 She also mentions a recent syncopal event of unknown etiology for which she has an implantable bus driver/monitor. Patient denies chest pain, shortness of breath, headache, palpitations, dizziness, fever, chills, nausea, vomiting, diarrhea, constipation, dysuria, frequency, urgency, melena, hematochezia or hematuria. Denies alcohol, tobacco or illicit drug use. No sick contacts or recent travels. Family history is unremarkable. - Current Medication List Current Medications: Active Medications Amlodipine Besylate (Norvasc -) 5 mg PO DAILY [facility] Heparin Sodium (Porcine) (Heparin -) 5,000 unit SQ BID [facility] Last Admin: 01/23/20 10:26 Dose: 5,000 unit Documented by: Lactated Ringer's (Lactated Ringers Solution) 1,000 mls @ 75 mls/hr IV ASDIR [facility] Last Admin: 01/22/20 17:10 Dose: 0 mls Documented by: Levothyroxine Sodium (Synthroid -) 50 mcg PO DAILY@0700 [facility] Last Admin: 01/23/20 06:24 Dose: 50 mcg Documented by: Metoprolol Succinate (Toprol Xl -) 25 mg PO DAILY [facility] Last Admin: 01/23/20 10:25 Dose: 25 mg Documented by: Ondansetron HCl (Zofran Injection) 4 mg IVPUSH Q6H PRN PRN Reason: NAUSEA AND/OR VOMITING Oxycodone HCl (Roxicodone -) 5 mg PO Q4H PRN PRN Reason: PAIN LEVEL 6-10 - Objective Vital Signs: Vital Signs Temperature 98.6 F 01/23/20 14:00 Pulse Rate 70 01/23/20 14:00 Respiratory Rate 20 01/23/20 14:00 Blood Pressure 144/99 01/23/20 14:00 O2 Sat by Pulse Oximetry (%) 97 01/23/20 14:00 Constitutional: Yes: Calm Eyes: Yes: WNL HENT: Yes: WNL Neck: Yes: WNL Cardiovascular: Yes: S1, S2, S4 Respiratory: Yes: WNL Gastrointestinal: Yes: Soft, Tenderness (mild: at surgical site) Genitourinary: No: Anuria Breast(s): Yes: WNL Musculoskeletal: Yes: Muscle Weakness Extremities: Yes: Cool Edema: No Peripheral Pulses WNL: Yes Integumentary: Yes: Incision Wound/Incision: Yes: Dressing Dry and Intact Neurological: Yes: Alert, Oriented, Weakness Psychiatric: Yes: WNL Labs: CBC, BMP 01/23/20 15:15 01/23/20 15:15 INR, PTT INR 1.05 (0.83-1.09) 01/19/20 10:46 Abnormal Lab Results 01/25/20 01/25/20 10:04 10:04 RBC 3.45 L Hgb 10.6 L Hct 32.2 L Monocytes % 12.0 H Albumin 3.2 L Assessment/Plan S/p umbilical henia repair 03/23/20 s/p syncope s/p Linq implantable loop recorder ovarian CA HTN hypothyroidism Plan: Maintain hydration. Pain management. F/u loop record findings over time TSH WNL BP control: on metoprolol and amlodipine.
[2020-01-23] MEDS: LACTATED RINGERS SOLUTION 1,000 ML IV SCH (21:25)
[2020-01-23] MEDS: oxyCODONE HCL 5 MG TABLET PO PRN (21:25)
[2020-01-24] MEDS ORDERED: PT OWN MED DRAWER 7, Y5N ONE ×2 (00:50→10:47)
[2020-01-24] MEDS: oxyCODONE HCL 5 MG TABLET PO PRN ×3 (02:22→22:13)
[2020-01-24] MEDS: LEVOTHYROXINE NA 50 MCG TABLET (FP) PO SCH (06:08)
--- NOTE | 2020-01-24 09:09 | PN ---
Progress Note (short form) - Note Progress Note: GENERAL SURGERY POD #2 s/p repair incisional hernia w/Sepramesh IP Alert. C/o mild incisional tenderness. Adequate pain management with medications ordered. Tolerating clear diet. Hasn't been oob as she is a fall risk. Denies n/v/f/c, CP, palpitaions, SOB or BLANC. AVSS. Afebrile. GEN: nad ABD: midline incision c/d/i. no hematoma. steri strips intact Problem List - Problems (1) Incisional hernia Assessment/Plan: Advance diet as tolerated Cont care per medicine f/u with Dr. Landeros 7 days after date of discharge Re-consult surgery PRN Above discussed with my attending and agrees. On behalf of Dr. Landeros, thank you for the opportunity to participate in your patient's care. Code(s): K43.2 - INCISIONAL HERNIA WITHOUT OBSTRUCTION OR GANGRENE (2) HTN (hypertension) Code(s): I10 - ESSENTIAL (PRIMARY) HYPERTENSION
[2020-01-24 10:48] LABS: BASO % 1.1 % (0-2.0); EOS % 0.6 % (0-4.5); HEMATOCRIT 30.5 % (32.4-45.2); HEMOGLOBIN 10.2 GM/dL (10.7-15.3); LYMPH % 24.7 % (8-40); MCH 31.2 pg (25.7-33.7); MCHC 33.3 g/dl (32.0-36.0); MEAN CELL VOLUME 93.5 fl (80-96); MEAN PLT VOLUME 9.5 fl (7.5-11.1); MONO % 10.5 % (3.8-10.2); NEUT % 63.1 % (42.8-82.8); PLATELET COUNT 290 K/MM3 (134-434); RBC 3.26 M/mm3 (3.60-5.2); RDW 13.9 % (11.6-15.6); WHITE BLOOD COUNT 8.9 K/mm3 (4.0-10.0)
[2020-01-24] MEDS: metoPROLOL SUCCINATE 25 MG TAB.SR.24H (FP) PO SCH (10:50)
[2020-01-24] MEDS: amLODIPine BESYLATE 5 MG TABLET (FP) PO SCH (10:50)
[2020-01-24] MEDS: LACTATED RINGERS SOLUTION 1,000 ML IV SCH ×2 (10:51→21:10)
[2020-01-24] MEDS: HEPARIN NA (PORCINE) 5,000 UNITS/ML 1ML VIAL SQ SCH ×2 (10:53→21:10)
[2020-01-24 11:08] LABS: ALBUMIN 3.2 g/dl (3.4-5.0); BILIRUBIN,TOTAL 0.3 mg/dL (0.2-1); BLOOD UREA NITROGEN 9.8 mg/dL (7-18); CALCIUM 9.2 mg/dL (8.5-10.1); MAGNESIUM 2.1 mg/dL (1.8-2.4); POTASSIUM 4.3 mmol/L (3.5-5.1); TOT PROT 6.4 g/dl (6.4-8.2)
--- NOTE | 2020-01-24 12:30 | PN ---
Progress Note, Physician History of Present Illness: 84 year old woman with a PMH of Stage 1 Ovarian cancer (s/p open hysterectomy), Hypothyroidism, Syncope, Implantable manager cardiac cath, HTN, Sleep apnea and Umbilical hernia presents with abdominal pain of 2 weeks duration. Pain is in a band like distribution of lower anterior abdomen including LLQ, RLQ and suprabupic region. It is 8/10 in intensity while ambulating and sitting upright, aching in quality with no radiation. She is not taking anything for it but lying in bed in improves pain. She also mentions a recent syncopal event of unknown etiology for which she has an implantable manager cardiac cath. Last bowel movement was this AM and she is still passing flatus. Patient denies chest pain, shortness of breath, headache, palpitations, dizziness, fever, chills, nausea, vomiting, diarrhea, constipation, dysuria, frequency, urgency, melena, hematochezia or hematuria. Denies alcohol, tobacco or illicit drug use. No sick contacts or recent travels. Family history is unremarkable. - Current Medication List Current Medications: Active Medications Amlodipine Besylate (Norvasc -) 5 mg PO DAILY [facility] Last Admin: 01/24/20 10:50 Dose: 5 mg Documented by: Heparin Sodium (Porcine) (Heparin -) 5,000 unit SQ BID [facility] Last Admin: 01/24/20 10:53 Dose: 5,000 unit Documented by: Lactated Ringer's (Lactated Ringers Solution) 1,000 mls @ 75 mls/hr IV ASDIR [facility] Last Admin: 01/24/20 10:51 Dose: 75 mls/hr Documented by: Levothyroxine Sodium (Synthroid -) 50 mcg PO DAILY@0700 [facility] Last Admin: 01/24/20 06:08 Dose: 50 mcg Documented by: Metoprolol Succinate (Toprol Xl -) 25 mg PO DAILY [facility] Last Admin: 01/24/20 10:50 Dose: 25 mg Documented by: Ondansetron HCl (Zofran Injection) 4 mg IVPUSH Q6H PRN PRN Reason: NAUSEA AND/OR VOMITING Oxycodone HCl (Roxicodone -) 5 mg PO Q4H PRN PRN Reason: PAIN LEVEL 6-10 Last Admin: 01/24/20 10:59 Dose: 5 mg Documented by: - Objective Vital Signs: Vital Signs Temperature 97.5 F L 01/24/20 06:00 Pulse Rate 68 01/24/20 06:00 Respiratory Rate 20 01/24/20 06:00 Blood Pressure 166/85 01/24/20 06:00 O2 Sat by Pulse Oximetry (%) 95 01/24/20 06:00 Eyes: Yes: WNL, Conjunctiva Clear, EOM Intact HENT: Yes: WNL, Atraumatic, Normocephalic Neck: Yes: WNL, Supple, Trachea Midline Cardiovascular: Yes: WNL, Regular Rate and Rhythm Respiratory: Yes: WNL, Regular, CTA Bilaterally Gastrointestinal: Yes: WNL, Normal Bowel Sounds Genitourinary: Yes: WNL Musculoskeletal: Yes: WNL Extremities: Yes: WNL Edema: No Integumentary: Yes: WNL Neurological: Yes: WNL, Alert, Oriented ...Motor Strength: WNL Psychiatric: Yes: WNL Labs: CBC, BMP 01/24/20 09:10 01/24/20 09:10 INR, PTT INR 1.05 (0.83-1.09) 01/19/20 10:46 Problem List - Problems (1) Ileus Code(s): K56.7 - ILEUS, UNSPECIFIED Assessment/Plan S/p umbilical henia repair 03/23/20 s/p syncope s/p Linq implantable loop recorder ovarian CA HTN hypothyroidism Plan: Maintain hydration. Pain management. F/u loop record findings over time TSH WNL DVT PLX
--- NOTE | 2020-01-24 16:47 | PN ---
Physical Exam: SUBJECTIVE: Patient seen and examined. tells me that her pain is better controlled. 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 scan of abdomen/pelvis with IV and oral contrast revealed moderate size uncomplicated umblical, small bowel ileus and diverticulosis coli without evidence of diverticulitis. Patient is s/p open umbilical hernia repair on 01/22/2020. discharge planning Vital Signs Period Temp Pulse Resp BP Sys/Miguel Pulse Ox Last 24 Hr 97.5 F-98.4 F 66-97 18-20 118-179/69-85 95-99 GENERAL: The patient is awake, alert, and fully oriented, in no acute distress. episodes of forgetfullness. HEAD: Normal with no signs of trauma. EYES: PERRL, extraocular movements intact, sclera anicteric, conjunctiva clear. No ptosis. ENT: Ears normal, nares patent, oropharynx clear without exudates NECK: Trachea midline, full range of motion, supple. LUNGS: Breath sounds equal, clear to auscultation bilaterally, no wheezes HEART: Regular rate and rhythm ABDOMEN: soft, non distended, surgical dress c/d/i- midline surgical incision, with intact steri strips. EXTREMITIES: no edema. NEUROLOGICAL: Normal speech, gait not observed. PSYCH: Normal mood, normal affect. SKIN: Warm, dry, normal turgor, no rashes or lesions noted Laboratory Results - last 24 hr 01/23/20 01/23/20 01/24/20 15:15 15:15 09:10 WBC 12.7 H 8.9 RBC 3.30 L 3.26 L Hgb 10.2 L 10.2 L Hct 31.1 L 30.5 L MCV 94.0 93.5 MCH 31.0 31.2 MCHC 33.0 33.3 RDW 13.6 13.9 Plt Count 295 290 MPV 9.7 D 9.5 Absolute Neuts (auto) 9.2 H 5.6 Neutrophils % 72.2 D 63.1 Lymphocytes % 16.0 D 24.7 D Monocytes % 11.4 H 10.5 H Eosinophils % 0.0 D 0.6 D Basophils % 0.4 1.1 Nucleated RBC % 0 0 Sodium 135 L Potassium 3.9 Chloride 100 Carbon Dioxide 27 Anion Gap 8 BUN 10.7 Creatinine 1.1 Est GFR (CKD-EPI)AfAm 53.02 Est GFR (CKD-EPI)NonAf 45.74 Random Glucose 101 Calcium 8.9 Magnesium 1.9 Total Bilirubin 0.3 AST 27 ALT 27 Alkaline Phosphatase 98 Total Protein 6.4 Albumin 3.0 L 01/24/20 09:10 WBC RBC Hgb Hct MCV MCH MCHC RDW Plt Count MPV Absolute Neuts (auto) Neutrophils % Lymphocytes % Monocytes % Eosinophils % Basophils % Nucleated RBC % Sodium 139 Potassium 4.3 Chloride 102 Carbon Dioxide 31 Anion Gap 6 L BUN 9.8 Creatinine 1.0 Est GFR (CKD-EPI)AfAm 59.49 Est GFR (CKD-EPI)NonAf 51.33 Random Glucose 84 Calcium 9.2 Magnesium 2.1 Total Bilirubin 0.3 AST 49 H ALT 50 Alkaline Phosphatase 108 Total Protein 6.4 Albumin 3.2 L Active Medications Generic Name Dose Route Start Last Admin Trade Name Freq PRN Reason Stop Dose Admin Amlodipine Besylate 5 mg 01/24/20 10:00 01/24/20 10:50 Norvasc - PO 5 mg DAILY [facility] Administration Heparin Sodium (Porcine) 5,000 unit 01/22/20 22:00 01/24/20 10:53 Heparin - SQ 5,000 unit BID [facility] Administration Lactated Ringer's 1,000 mls @ 75 mls/hr 01/22/20 16:38 01/24/20 10:51 Lactated Ringers Solution IV 75 mls/hr ASDIR [facility] Administration Levothyroxine Sodium 50 mcg 01/23/20 07:00 01/24/20 06:08 Synthroid - PO 50 mcg DAILY@0700 [facility] Administration Metoprolol Succinate 25 mg 01/23/20 10:00 01/24/20 10:50 Toprol Xl - PO 25 mg DAILY [facility] Administration Ondansetron HCl 4 mg 01/22/20 16:38 Zofran Injection IVPUSH Q6H PRN NAUSEA AND/OR VOMITING Oxycodone HCl 5 mg 01/23/20 07:53 01/24/20 10:59 Roxicodone - PO 5 mg Q4H PRN Administration PAIN LEVEL 6-10 ASSESSMENT/PLAN: Problem List - Problems (1) Status post hernia repair Assessment/Plan: on 01/22/2020, underwent open repair with Dr. Landeros dressing c/d/i advance diet per surgery incentive spirometer pain management Code(s): Z98.890 - OTHER SPECIFIED POSTPROCEDURAL STATES; Z87.19 - PERSONAL HISTORY OF OTHER DISEASES OF THE DIGESTIVE SYSTEM (2) HTN (hypertension) Assessment/Plan: slightly elevated on toprol and amlodopine increased amlodopine today Code(s): I10 - ESSENTIAL (PRIMARY) HYPERTENSION (3) Depression Assessment/Plan: hold trintellix supportive management Code(s): F32.9 - MAJOR DEPRESSIVE DISORDER, SINGLE EPISODE, UNSPECIFIED (4) DVT prophylaxis Assessment/Plan: SCDs Code(s): Z29.9 - ENCOUNTER FOR PROPHYLACTIC MEASURES, UNSPECIFIED (5) Prophylactic measure Assessment/Plan: SCDs fall precautions SC heparin BID Code(s): Z29.9 - ENCOUNTER FOR PROPHYLACTIC MEASURES, UNSPECIFIED Visit type - Emergency Visit Emergency Visit: Yes ED Registration Date: 01/18/20 Care time: The patient presented to the Emergency Department on the above date and was hospitalized for further evaluation of their emergent condition. - New Patient This patient is new to me today: Yes Date on this admission: 01/24/20 - Critical Care Critical Care patient: No - Discharge Referral Referred to [facility] No - Medication Review Med list reviewed for High Risk Meds patients 65 and older: Yes
[2020-01-25] MEDS: LEVOTHYROXINE NA 50 MCG TABLET (FP) PO SCH (06:36)
[2020-01-25] MEDS: amLODIPine BESYLATE 5 MG TABLET (FP) PO SCH (10:24)
[2020-01-25] MEDS: metoPROLOL SUCCINATE 25 MG TAB.SR.24H (FP) PO SCH (10:24)
[2020-01-25] MEDS: oxyCODONE HCL 5 MG TABLET PO PRN ×2 (10:24→16:48)
[2020-01-25] MEDS: HEPARIN NA (PORCINE) 5,000 UNITS/ML 1ML VIAL SQ SCH ×2 (10:25→21:20)
[2020-01-25] MEDS: LACTATED RINGERS SOLUTION 1,000 ML IV SCH ×2 (10:26→17:00)
[2020-01-25 11:27] LABS: BASO % 0.5 % (0-2.0); EOS % 1.4 % (0-4.5); HEMATOCRIT 32.2 % (32.4-45.2); HEMOGLOBIN 10.6 GM/dL (10.7-15.3); LYMPH % 18.2 % (8-40); MCH 30.7 pg (25.7-33.7); MCHC 32.9 g/dl (32.0-36.0); MEAN CELL VOLUME 93.2 fl (80-96); MEAN PLT VOLUME 9.4 fl (7.5-11.1); NEUT % 67.9 % (42.8-82.8); PLATELET COUNT 291 K/MM3 (134-434); RBC 3.45 M/mm3 (3.60-5.2); RDW 14.1 % (11.6-15.6); WHITE BLOOD COUNT 9.5 K/mm3 (4.0-10.0)
[2020-01-25 11:58] VITALS: BMI 22.3
[2020-01-25 12:13] LABS: ALBUMIN 3.2 g/dl (3.4-5.0); BILIRUBIN,TOTAL 0.4 mg/dL (0.2-1); BLOOD UREA NITROGEN 10.2 mg/dL (7-18); CALCIUM 9.2 mg/dL (8.5-10.1); CREATININE 0.9 mg/dL (0.55-1.3); POTASSIUM 3.9 mmol/L (3.5-5.1); TOT PROT 6.5 g/dl (6.4-8.2)
--- NOTE | 2020-01-25 16:41 | PN ---
Physical Exam: SUBJECTIVE: Patient seen and examined at the bedside. Unable to assess if she is tolerating a regular diet, she refused breakfast and lunch. will add supplements and monitor. 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 scan of abdomen/pelvis with IV and oral contrast revealed moderate size uncomplicated umblical, small bowel ileus and diverticulosis coli without evidence of diverticulitis. Patient is s/p open umbilical hernia repair on 01/22/2020. Vital Signs Period Temp Pulse Resp BP Sys/Miguel Pulse Ox Last 24 Hr 97.5 F-98.8 F 69-80 20-20 127-166/57-90 96-97 GENERAL: The patient is awake, alert, and fully oriented, in no acute distress. episodes of forgetfullness. HEAD: Normal with no signs of trauma. EYES: PERRL, extraocular movements intact, sclera anicteric, conjunctiva clear. No ptosis. ENT: Ears normal, nares patent, oropharynx clear without exudates NECK: Trachea midline, full range of motion, supple. LUNGS: Breath sounds equal, clear to auscultation bilaterally, no wheezes HEART: Regular rate and rhythm ABDOMEN: soft, non distended, surgical dress c/d/i- midline surgical incision, with intact steri strips. EXTREMITIES: no edema. NEUROLOGICAL: Normal speech, gait not observed. PSYCH: Normal mood, normal affect. SKIN: Warm, dry, normal turgor, no rashes or lesions noted Laboratory Results - last 24 hr 01/25/20 01/25/20 10:04 10:04 WBC 9.5 RBC 3.45 L Hgb 10.6 L Hct 32.2 L MCV 93.2 MCH 30.7 MCHC 32.9 RDW 14.1 Plt Count 291 MPV 9.4 Absolute Neuts (auto) 6.4 Neutrophils % 67.9 Lymphocytes % 18.2 D Monocytes % 12.0 H Eosinophils % 1.4 D Basophils % 0.5 Nucleated RBC % 0 Sodium 137 Potassium 3.9 Chloride 102 Carbon Dioxide 26 Anion Gap 9 BUN 10.2 Creatinine 0.9 Est GFR (CKD-EPI)AfAm 67.57 Est GFR (CKD-EPI)NonAf 58.30 Random Glucose 94 Calcium 9.2 Magnesium 2.0 Total Bilirubin 0.4 AST 30 ALT 37 Alkaline Phosphatase 108 Total Protein 6.5 Albumin 3.2 L Active Medications Generic Name Dose Route Start Last Admin Trade Name Freq PRN Reason Stop Dose Admin Amino Acids 30 ml 01/25/20 17:30 Prosource No Carb Liquid Pkt PO BID@0800,1730 [facility] Amlodipine Besylate 5 mg 01/24/20 10:00 01/25/20 10:24 Norvasc - PO 5 mg DAILY [facility] Administration Heparin Sodium (Porcine) 5,000 unit 01/22/20 22:00 01/25/20 10:25 Heparin - SQ 5,000 unit BID [facility] Administration Lactated Ringer's 1,000 mls @ 75 mls/hr 01/22/20 16:38 01/25/20 10:26 Lactated Ringers Solution IV 75 mls/hr ASDIR [facility] Administration Levothyroxine Sodium 50 mcg 01/23/20 07:00 01/25/20 06:36 Synthroid - PO 50 mcg DAILY@0700 [facility] Administration Metoprolol Succinate 25 mg 01/23/20 10:00 01/25/20 10:24 Toprol Xl - PO 25 mg DAILY [facility] Administration Ondansetron HCl 4 mg 01/22/20 16:38 Zofran Injection IVPUSH Q6H PRN NAUSEA AND/OR VOMITING Oxycodone HCl 5 mg 01/23/20 07:53 01/25/20 10:24 Roxicodone - PO 5 mg Q4H PRN Administration PAIN LEVEL 6-10 ASSESSMENT/PLAN: Problem List - Problems (1) Status post hernia repair Assessment/Plan: on 01/22/2020, underwent open repair with Dr. Landeros dressing c/d/i refused breakfast and lunch but tolerated chicken broth. add supplements. incentive spirometer pain management discharge planning Code(s): Z98.890 - OTHER SPECIFIED POSTPROCEDURAL STATES; Z87.19 - PERSONAL HISTORY OF OTHER DISEASES OF THE DIGESTIVE SYSTEM (2) HTN (hypertension) Assessment/Plan: slightly elevated on toprol and amlodopine increased amlodopine to 10mg monitor bp Code(s): I10 - ESSENTIAL (PRIMARY) HYPERTENSION (3) Depression Assessment/Plan: hold trintellix supportive management Code(s): F32.9 - MAJOR DEPRESSIVE DISORDER, SINGLE EPISODE, UNSPECIFIED (4) DVT prophylaxis Assessment/Plan: SCDs Code(s): Z29.9 - ENCOUNTER FOR PROPHYLACTIC MEASURES, UNSPECIFIED (5) Prophylactic measure Assessment/Plan: SCDs fall precautions SC heparin BID Code(s): Z29.9 - ENCOUNTER FOR PROPHYLACTIC MEASURES, UNSPECIFIED Visit type - Emergency Visit Emergency Visit: Yes ED Registration Date: 01/18/20 Care time: The patient presented to the Emergency Department on the above date and was hospitalized for further evaluation of their emergent condition. - New Patient This patient is new to me today: No - Critical Care Critical Care patient: No - Discharge Referral Referred to [facility] No - Medication Review Med list reviewed for High Risk Meds patients 65 and older: No
[2020-01-25] MEDS: AMINO ACIDS/PROTEIN HYDROLYS 30 ML LIQUID.PKT PO SCH (16:48)
--- NOTE | 2020-01-25 16:50 | PN ---
Progress Note, Physician Chief Complaint: Pt asleep, but easily arousable; then c/o moderate pain at abdominal surgical site. 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 She also mentions a recent syncopal event of unknown etiology for which she has an implantable media monitor. Patient denies chest pain, shortness of breath, headache, palpitations, dizziness, fever, chills, nausea, vomiting, diarrhea, constipation, dysuria, frequency, urgency, melena, hematochezia or hematuria. Denies alcohol, tobacco or illicit drug use. No sick contacts or recent travels. Family history is unremarkable. - Current Medication List Current Medications: Active Medications Amino Acids (Prosource No Carb Liquid Pkt) 30 ml PO BID@0800,1730 [facility] Amlodipine Besylate (Norvasc -) 5 mg PO DAILY [facility] Last Admin: 01/25/20 10:24 Dose: 5 mg Documented by: Heparin Sodium (Porcine) (Heparin -) 5,000 unit SQ BID [facility] Last Admin: 01/25/20 10:25 Dose: 5,000 unit Documented by: Lactated Ringer's (Lactated Ringers Solution) 1,000 mls @ 75 mls/hr IV ASDIR [facility] Last Admin: 01/25/20 10:26 Dose: 75 mls/hr Documented by: Levothyroxine Sodium (Synthroid -) 50 mcg PO DAILY@0700 [facility] Last Admin: 01/25/20 06:36 Dose: 50 mcg Documented by: Metoprolol Succinate (Toprol Xl -) 25 mg PO DAILY [facility] Last Admin: 01/25/20 10:24 Dose: 25 mg Documented by: Ondansetron HCl (Zofran Injection) 4 mg IVPUSH Q6H PRN PRN Reason: NAUSEA AND/OR VOMITING Oxycodone HCl (Roxicodone -) 5 mg PO Q4H PRN PRN Reason: PAIN LEVEL 6-10 Last Admin: 01/25/20 10:24 Dose: 5 mg Documented by: - Objective Vital Signs: Vital Signs Temperature 98.4 F 01/25/20 14:00 Pulse Rate 70 01/25/20 14:00 Respiratory Rate 20 01/24/20 14:00 Blood Pressure 159/71 01/25/20 14:00 O2 Sat by Pulse Oximetry (%) 96 01/25/20 14:00 Constitutional: Yes: Calm Eyes: Yes: WNL HENT: Yes: WNL Neck: Yes: WNL Cardiovascular: Yes: S1, S2 Labs: CBC, BMP 01/25/20 10:04 01/25/20 10:04 INR, PTT INR 1.05 (0.83-1.09) 01/19/20 10:46 Assessment/Plan S/p umbilical henia repair 03/23/20 s/p syncope s/p Linq implantable loop recorder ovarian CA HTN hypothyroidism Plan: Maintain hydration. If pain management does not aid in decreasing BP, consider increase in amlodipine to 7.5-10 mg daily. F/u loop record findings over time TSH WNL BP control: on metoprolol and amlodipine.
[2020-01-26] MEDS: LEVOTHYROXINE NA 50 MCG TABLET (FP) PO SCH (06:03)
[2020-01-26] MEDS: oxyCODONE HCL 5 MG TABLET PO PRN (08:32)
[2020-01-26] MEDS: AMINO ACIDS/PROTEIN HYDROLYS 30 ML LIQUID.PKT PO SCH (08:33)
[2020-01-26] MEDS: HEPARIN NA (PORCINE) 5,000 UNITS/ML 1ML VIAL SQ SCH (09:34)
[2020-01-26] MEDS: metoPROLOL SUCCINATE 25 MG TAB.SR.24H (FP) PO SCH (09:34)
[2020-01-26] MEDS: amLODIPine BESYLATE 5 MG TABLET (FP) PO SCH (09:34)
[2020-01-26] MEDS ORDERED: VORTIOXETINE HYDROBROMIDE 5 MG PO SCH (10:00)
[2020-01-26 10:20] LABS: BASO % 1.1 % (0-2.0); HEMATOCRIT 30.4 % (32.4-45.2); HEMOGLOBIN 10.3 GM/dL (10.7-15.3); LYMPH % 28.4 % (8-40); MCH 31.7 pg (25.7-33.7); MEAN CELL VOLUME 93.3 fl (80-96); MEAN PLT VOLUME 9.8 fl (7.5-11.1); MONO % 11.6 % (3.8-10.2); NEUT % 56.9 % (42.8-82.8); PLATELET COUNT 256 K/MM3 (134-434); RBC 3.26 M/mm3 (3.60-5.2); RDW 13.6 % (11.6-15.6); WHITE BLOOD COUNT 6.1 K/mm3 (4.0-10.0)
[2020-01-26] MEDS: LACTATED RINGERS SOLUTION 1,000 ML IV SCH (10:47)
[2020-01-26 10:56] LABS: POTASSIUM 3.6 mmol/L (3.5-5.1)
[2020-01-26 11:15] LABS: ALBUMIN 2.9 g/dl (3.4-5.0); BILIRUBIN,TOTAL 0.8 mg/dL (0.2-1); BLOOD UREA NITROGEN 17.1 mg/dL (7-18); MAGNESIUM 1.8 mg/dL (1.8-2.4); TOT PROT 5.8 g/dl (6.4-8.2)
[2020-01-26] MEDS ORDERED: SENNOSIDES 8.6MG TABLET (FP) PO PRN (12:25)
[2020-01-26] MEDS ORDERED: BISACODYL 5 MG TABLET.DR (FP) PO ONE (12:28)
[2020-01-26] MEDS ORDERED: ACETAMINOPHEN 325 MG TABLET (FP) PO PRN (12:29)
--- NOTE | 2020-01-26 13:39 | PN ---
Progress Note, Physician History of Present Illness: 84 year old woman with a PMH of Stage 1 Ovarian cancer (s/p open hysterectomy), Hypothyroidism, Syncope, Implantable youth nutritional monitor, HTN, Sleep apnea and Umbilical hernia presents with abdominal pain of 2 weeks duration. Pain is in a band like distribution of lower anterior abdomen including LLQ, RLQ and suprabupic region. It is 8/10 in intensity while ambulating and sitting upright, aching in quality with no radiation. She is not taking anything for it but lying in bed in improves pain. She also mentions a recent syncopal event of unknown etiology for which she has an implantable youth nutritional monitor. Last bowel movement was this AM and she is still passing flatus. Patient denies chest pain, shortness of breath, headache, palpitations, dizziness, fever, chills, nausea, vomiting, diarrhea, constipation, dysuria, frequency, urgency, melena, hematochezia or hematuria. Denies alcohol, tobacco or illicit drug use. No sick contacts or recent travels. Family history is unremarkable. - Current Medication List Current Medications: Active Medications Acetaminophen (Tylenol -) 650 mg PO Q6H PRN PRN Reason: PAIN LEVEL 7 - 10 Amino Acids (Prosource No Carb Liquid Pkt) 30 ml PO BID@0800,1730 [facility] Last Admin: 01/26/20 08:33 Dose: 30 ml Documented by: Amlodipine Besylate (Norvasc -) 5 mg PO DAILY [facility] Last Admin: 01/26/20 09:34 Dose: 5 mg Documented by: Docusate Sodium (Colace -) 100 mg PO TID [facility] Last Admin: 01/26/20 13:14 Dose: 100 mg Documented by: Heparin Sodium (Porcine) (Heparin -) 5,000 unit SQ BID [facility] Last Admin: 01/26/20 09:34 Dose: 5,000 unit Documented by: Lactated Ringer's (Lactated Ringers Solution) 1,000 mls @ 75 mls/hr IV ASDIR [facility] Last Admin: 01/26/20 10:47 Dose: 75 mls/hr Documented by: Levothyroxine Sodium (Synthroid -) 50 mcg PO DAILY@0700 [facility] Last Admin: 01/26/20 06:03 Dose: 50 mcg Documented by: Metoprolol Succinate (Toprol Xl -) 25 mg PO DAILY [facility] Last Admin: 01/26/20 09:34 Dose: 25 mg Documented by: Non-Formulary Medication (Vortioxetine Hydrobromide [Trintellix]) 5 mg PO DAILY [facility] Ondansetron HCl (Zofran Injection) 4 mg IVPUSH Q6H PRN PRN Reason: NAUSEA AND/OR VOMITING - Objective Vital Signs: Vital Signs Temperature 98.2 F 01/26/20 10:00 Pulse Rate 77 01/26/20 10:00 Respiratory Rate 20 01/26/20 10:00 Blood Pressure 142/67 01/26/20 10:00 O2 Sat by Pulse Oximetry (%) 96 01/26/20 10:00 Eyes: Yes: WNL, Conjunctiva Clear, EOM Intact HENT: Yes: WNL, Atraumatic, Normocephalic Neck: Yes: WNL, Supple, Trachea Midline Cardiovascular: Yes: WNL, Regular Rate and Rhythm Respiratory: Yes: WNL, Regular, CTA Bilaterally Gastrointestinal: Yes: WNL, Normal Bowel Sounds Genitourinary: Yes: WNL Musculoskeletal: Yes: WNL Extremities: Yes: WNL Edema: No Integumentary: Yes: WNL Neurological: Yes: WNL, Alert, Oriented ...Motor Strength: WNL Psychiatric: Yes: WNL Labs: CBC, BMP 01/26/20 09:12 01/26/20 06:00 INR, PTT INR 1.05 (0.83-1.09) 01/19/20 10:46 Problem List - Problems (1) Ileus Code(s): K56.7 - ILEUS, UNSPECIFIED Assessment/Plan S/p umbilical henia repair 03/23/20 s/p syncope s/p Linq implantable loop recorder ovarian CA HTN hypothyroidism Plan: Maintain hydration. If pain management does not aid in decreasing BP, consider increase in amlodipine to 7.5-10 mg daily. F/u loop record findings over time TSH WNL BP control: on metoprolol and amlodipine.
[2020-01-26] MEDS ORDERED: DOCUSATE SODIUM 100 MG CAPSULE (FP) PO SCH (14:00)
[2020-01-26] MEDS ORDERED: amLODIPine BESYLATE 10 MG TABLET (FP) PO SCH (14:16)
[2020-01-26 15:03] VITALS: BP 154/71; PULSE 75; TEMP 98.9
--- NOTE | 2020-01-26 15:45 | DS ---
Physical Exam: SUBJECTIVE: Patient seen and examined at the bedside. She was slightly groggy when i saw her and had received oxycodone 5mg in the a.m. I spoke to HCP about patient discharge and she agrees to discharge patient to rehab, [facility]. OBJECTIVE: stop oxycodone as she was groggy and sleepy and this may cause her not to eat and cause constipation. It can also cause falls in this age group. will start on a bowel regimen for pain, she was previously tolerating tylenol prn and would continue that for now unless pain is severe. 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 scan of abdomen/pelvis with IV and oral contrast revealed moderate size uncomplicated umblical, small bowel ileus and diverticulosis coli without evidence of diverticulitis. Patient is s/p open umbilical hernia repair on 01/22/2020. She is tolerating her diet without any nausea or vomiting. Abdomen, soft, non distended. Surgical site with steri strips and open to air. Discharge planning to rehab. Period Temp Pulse Resp BP Sys/Miguel Pulse Ox Last 24 Hr 97.5 F-98.9 F 68-77 18-20 135-154/65-71 93-98 PHYSICAL EXAM GENERAL: The patient is awake, alert, tells me that she feels well and pain is better controlled. she was eating some of her lunch without difficulty. HEAD: Normal with no signs of trauma. EYES: PERRL, extraocular movements intact, sclera anicteric, conjunctiva clear. No ptosis. ENT: Ears normal, nares patent, oropharynx clear without exudates NECK: Trachea midline, full range of motion, supple. LUNGS: Breath sounds equal, clear to auscultation bilaterally, no wheezes HEART: Regular rate and rhythm ABDOMEN: soft, non distended, surgical dress c/d/i- midline surgical incision, with intact steri strips. EXTREMITIES: no edema. NEUROLOGICAL: Normal speech, gait not observed. PSYCH: Normal mood, normal affect. SKIN: Warm, dry, normal turgor, no rashes or lesions noted LABS Laboratory Results - last 24 hr 01/26/20 01/26/20 06:00 09:12 WBC 6.1 RBC 3.26 L Hgb 10.3 L Hct 30.4 L MCV 93.3 MCH 31.7 MCHC 34.0 RDW 13.6 Plt Count 256 MPV 9.8 Absolute Neuts (auto) 3.5 Neutrophils % 56.9 Lymphocytes % 28.4 D Monocytes % 11.6 H Eosinophils % 2.0 Basophils % 1.1 Nucleated RBC % 0 Sodium 138 Potassium 3.6 Chloride 103 Carbon Dioxide 25 Anion Gap 10 BUN 17.1 Creatinine 1.0 Est GFR (CKD-EPI)AfAm 59.49 Est GFR (CKD-EPI)NonAf 51.33 Random Glucose 100 Calcium 9.0 Magnesium 1.8 Total Bilirubin 0.8 AST 22 ALT 31 Alkaline Phosphatase 94 Total Protein 5.8 L Albumin 2.9 L HOSPITAL COURSE: Date of Admission:01/18/20 Date of Discharge: 01/26/20 Minutes to complete discharge: 60 Discharge Summary Problems reviewed: Yes Reason For Visit: ILEUS Current Active Problems DVT prophylaxis (Acute) Depression (Acute) HTN (hypertension) (Acute) Hypothyroidism (Acute) Ileus (Acute) Incisional hernia (Acute) Prophylactic measure (Acute) Recurrent syncope (Acute) Status post hernia repair (Acute) Umbilical hernia (Acute) Condition: Stable - Instructions Diet, Activity, Other Instructions: Dr. Landeros Discharge Instructions Post Operative Instructions Physical activity Resume your normal everyday activity as tolerated no heavy lifting or exercise until seen by your surgeon. You may walk unlimited amounts of and climb stairs. You may resume driving the car when you feel safe and comfortable behind the wheel. Wound care If you have a bandage, leave it on, and keep dry for 48 - 72 hours. After that time discard the outer bandage. If there are tapes on the skin under the outer bandage, leave them in place. They will peel off in the next 7 to 10 days. Do Not peel them off. You may shower 2 days after surgery. If there are tapes present on the skin, they can get wet. Diet There are no dietary restrictions. Eat healthy, high-fiber foods. Drink 6 to 8 glasses of liquid each day. This will assist in keeping your bowels are regular. Pain management You may take Tylenol or acetaminophen or Ibuprofen (for example, Motrin, Advil etc.) Any pain prescription medication ordered should be taken as prescribed for moderate to severe pain. Call Dr. Landeros for any of the following: Severe pain not relieved by medication Fever of 101 or higher Excessive bleeding or drainage on dressing Inability to urinate Call the office at [phone] for a post operative appointment in 7 - 10 days. Hypertension: On Amlodopine 10mg and Toprol 25mg xl. Continue this regimen and uptitrate To prol if BP is elevated and only if patient is not orthostatic. Referrals: Omari Landeros MD [Staff Physician] - Charisse Melgar MD [Primary Care Provider] - Disposition: [facility] - Home Medications Comprehensive Discharge Medication List: Ambulatory Orders Calcium 250Mg/Vit-D 125 Units [Oscal 250 mg+D -] 1 combo PO DAILY 01/18/20 Cholecalciferol (Vitamin D3) [Vitamin D3 -] 1,000 unit PO DAILY 01/18/20 Levothyroxine Sodium [Levoxyl] 50 mcg PO DAILY 01/18/20 Metoprolol Succinate [Toprol Xl] 25 mg PO DAILY 01/18/20 Vit A/Vit C/Vit E/Zinc/Copper [Preservision Areds Softgel] 1 each PO BID 01/18/20 Vortioxetine Hydrobromide [Trintellix] 5 mg PO DAILY 01/18/20 Amino Acids/Protein Hydrolys [Prosource No Carb Liquid Pkt] 30 ml PO BID@0800,1730 packet 01/26/20 Amlodipine Besylate [Norvasc -] 10 mg PO DAILY tablet 01/26/20 Docusate Sodium [Colace -] 100 mg PO TID capsule 01/26/20 Sennosides [Senna -] 2 tab PO HS PRN tablet 01/26/20 Problem List - Problems (1) Status post hernia repair Assessment/Plan: on 01/22/2020, underwent open repair with Dr. Landeros incision clean and dry, with steri strips patient diet has improved per staff and she is tolerating a low sodium diet. incentive spirometer encouraged pain management with tylenol, avoid narcotics unless pain is severe (note risks of falls, constipation and dizziness with this medication in this age group) discharge planning to rehab Code(s): Z98.890 - OTHER SPECIFIED POSTPROCEDURAL STATES; Z87.19 - PERSONAL HISTORY OF OTHER DISEASES OF THE DIGESTIVE SYSTEM (2) HTN (hypertension) Assessment/Plan: slightly elevated on toprol and amlodopine increased amlodopine to 10mg monitor bp Code(s): I10 - ESSENTIAL (PRIMARY) HYPERTENSION (3) Depression Assessment/Plan: continue home meds. supportive management Code(s): F32.9 - MAJOR DEPRESSIVE DISORDER, SINGLE EPISODE, UNSPECIFIED (4) DVT prophylaxis Assessment/Plan: SCDs Code(s): Z29.9 - ENCOUNTER FOR PROPHYLACTIC MEASURES, UNSPECIFIED (5) Prophylactic measure Assessment/Plan: SCDs fall precautions SC heparin BID Code(s): Z29.9 - ENCOUNTER FOR PROPHYLACTIC MEASURES, UNSPECIFIED This patient is new to me today: No Emergency Visit: Yes ED Registration Date: 01/18/20 Care time: The patient presented to the Emergency Department on the above date and was hospitalized for further evaluation of their emergent condition. Critical Care patient: No - Discharge Referral Referred to [facility] No
--- NOTE | 2020-01-31 21:19 | OP ---
DATE OF OPERATION: 01/22/2020 PREOPERATIVE DIAGNOSIS: Incisional hernia. POSTOPERATIVE DIAGNOSIS: Incisional hernia. PROCEDURE: Repair of incisional hernia with Sepramesh IP. SURGEON: Omari Landeros MD ALLOCATION ANALYST: Octavio Jimenes PA-C ANESTHESIA: General. OPERATIVE FINDINGS: There was a defect at the umbilicus, approximately 4 cm in greatest dimension. The rest of the findings were unremarkable. DESCRIPTION OF PROCEDURE: The patient was placed on the operating table in supine position, and after the induction of general anesthesia, the patient's abdomen was prepped with ChloraPrep and draped in sterile fashion. Timeout was taken and incision made through the previous midline incision from slightly above to slightly below the umbilicus. This was taken down through skin and subcutaneous tissue and the sac entered. The hernia reduced spontaneously at the time of induction of general anesthesia. Fascia was mobilized circumferentially around the defect using electrocautery. The undersurface of the defect was cleared using blunt dissection, and then, a piece of Sepramesh IP was fashioned into the defect and sutured in place with interrupted 0 Prolene horizontal mattress sutures. Hemostasis was secured with electrocautery and then the wound copiously irrigated with sterile saline. Hemostasis was again verified, and then, the incision was closed in layers by first covering the mesh with the redundant sac and approximating the redundant sac with interrupted 2-0 Vicryl. The deep dermis was then reapproximated with interrupted 3-0 Vicryl and the skin edges with 4-0 Monocryl in a subcuticular continuous fashion. Steri-Strips and dry sterile dressings were placed and the procedure terminated at this point and the patient aroused from general anesthesia and transferred to the postanesthesia care unit in stable condition, awake and alert. ESTIMATED BLOOD LOSS: 10 mL. REPLACEMENTS: Crystalloid. DRAINS: None. SPECIMEN: None. I, Omari Landeros, was physically present in the operating room from the time the patient was placed on the operating table until she was transferred to the postanesthesia care unit in my accompaniment. MD JOHN Blackmon/[id number] MTDD
== END 2020-01-26 17:18 | DRG 354 ==
LOC: JER 13:00 → JERBED 21:08 → J8W 01-19 01:58
PROVIDERS: ADMIT Internal Medicine; ATTEND Nurse Practitioner Family
PROC: 0WUF4JZ Supplement Abdominal Wall with Synthetic Substitute, Percutaneous Endoscopic Approach (ICD-10-PCS; principal; 2020-01-22 11:30)
DX: K42.9 Umbilical hernia without obstruction or gangrene (principal); K56.7 Ileus, unspecified; F32.9 Major depressive disorder, single episode, unspecified; I10 Essential (primary) hypertension; E03.9 Hypothyroidism, unspecified; R10.32 Left lower quadrant pain; G47.30 Sleep apnea, unspecified; R55 Syncope and collapse; Z85.43 Personal history of malignant neoplasm of ovary
CPT/HCPCS: 36415; 71045-TC-FY; 74177-TC; 80048; 80053; 81003; 83690; 83735; 84100; 84443; 85025; 85027; 85610; 85730; 86850; 86900; 86901; 87086; 93005; 93010; 93306-TC; 94760; 97116-GP; 97161-GP; 99285-25; J0131; J1644; Q9967; U0003